=== PATIENT | male | born 1955 | race Caucasian/White ===

== ENCOUNTER 2018-12-14 00:21 | Day surgery (SDC) | payer OTHER ==
[~2018-12-14 00:21] MED LIST: ACET325 PO; ACET500 PO; ALFUZOSIN 10 MG; ASCO1ER; ASPI81CH PO; ASPI81EC PO; Alavert D-12 A1 EACH PO; BACITRACIN; BACPOLTO30 TP; BISA10S PR; CAMPHETSO TP; CHLGLU.12S; CHLGLU.12S MT; CHLO5 PO; CHLORHEXIDINE; CHLORHEXIDINE GLUCON; CIPR500 PO; DEXGUASY PO; DIPH50 PO; DOC250 PO; DOCU100 PO; GLIM2; GLIM2 PO; GUAI100SY PO; IBUP400 PO; IBUP800; INSDET100 SQ; INSDET100 SUBQ; INSULANPEN IM; IRRISO IR; LAVAP17G PO; LEVFLO500 PO; LORA10 PO; LORA10ER PO; MAGCHL64ER PO; MAGNESIUM; METF500; METF500 PO; METF500C PO; METR500 PO; MOM PO; MULVITMIND PO; MULVITMINF PO; NITR100CA PO; NYST100TC TOP; NYSTRITC TOP; OMEP10ER PO; OMEP20ER PO; OXYB5 PO; OXYB5ER PO; PHENA200 PO; PIOG15; PIOG15 PO; POLY17UD PO; POLYMYXIN B; PROC25S PR; RXERYTOPTH OP; SLOW MAG; SLOW-MAG; SULTRIDS PO; TAMS.4ER PO; TRAM50 PO; ZINCODVICR TOP; [UNRECOGNIZED DRUG - OTHER]; [UNRECOGNIZED DRUG - OTHER]; [UNRECOGNIZED DRUG - OTHER]; [UNRECOGNIZED DRUG - OTHER]; [UNRECOGNIZED DRUG - OTHER] PO
== END 2018-12-14 23:16 | disposition home or self-care (01) ==
LOC: WOUND 00:21
DX: L89.312 Pressure ulcer of right buttock, stage 2 (principal); E11.40 Type 2 diabetes mellitus with diabetic neuropathy, unspecified; I10 Essential (primary) hypertension; I25.10 Atherosclerotic heart disease of native coronary artery without angina pectoris; Z79.4 Long term (current) use of insulin
CPT/HCPCS: G0463

== ENCOUNTER 2018-12-21 00:50 | Day surgery (SDC) | payer OTHER | END 2018-12-21 23:03 | disposition home or self-care (01) | LOC: WOUND 00:50 | DX: L89.322 Pressure ulcer of left buttock, stage 2 (principal); E11.40 Type 2 diabetes mellitus with diabetic neuropathy, unspecified; I10 Essential (primary) hypertension; I25.10 Atherosclerotic heart disease of native coronary artery without angina pectoris; Z79.899 Other long term (current) drug therapy; Z79.84 Long term (current) use of oral hypoglycemic drugs | CPT/HCPCS: G0463 ==

== ENCOUNTER 2019-01-04 13:30 | Day surgery (SDC) | payer OTHER | END 2019-01-04 22:38 | disposition home or self-care (01) | LOC: WOUND 13:30 | DX: L89.322 Pressure ulcer of left buttock, stage 2 (principal); E11.40 Type 2 diabetes mellitus with diabetic neuropathy, unspecified; I10 Essential (primary) hypertension; E11.51 Type 2 diabetes mellitus with diabetic peripheral angiopathy without gangrene; G80.9 Cerebral palsy, unspecified; Z99.3 Dependence on wheelchair; Z74.09 Other reduced mobility | CPT/HCPCS: G0463 ==

== ENCOUNTER 2019-01-18 13:30 | Day surgery (SDC) | payer OTHER | END 2019-01-18 22:56 | disposition home or self-care (01) | LOC: WOUND 13:30 | DX: L89.322 Pressure ulcer of left buttock, stage 2 (principal); E11.40 Type 2 diabetes mellitus with diabetic neuropathy, unspecified; I10 Essential (primary) hypertension; E11.51 Type 2 diabetes mellitus with diabetic peripheral angiopathy without gangrene; G80.9 Cerebral palsy, unspecified; Z99.3 Dependence on wheelchair; Z74.09 Other reduced mobility | CPT/HCPCS: G0463 ==

== ENCOUNTER 2019-02-01 00:33 | Day surgery (SDC) | payer OTHER | END 2019-02-01 22:48 | disposition home or self-care (01) | LOC: WOUND 00:33 | DX: L89.322 Pressure ulcer of left buttock, stage 2 (principal); L89.312 Pressure ulcer of right buttock, stage 2; E11.40 Type 2 diabetes mellitus with diabetic neuropathy, unspecified; E11.51 Type 2 diabetes mellitus with diabetic peripheral angiopathy without gangrene; I25.10 Atherosclerotic heart disease of native coronary artery without angina pectoris; I10 Essential (primary) hypertension; Z74.09 Other reduced mobility; Z79.899 Other long term (current) drug therapy; Z79.4 Long term (current) use of insulin | CPT/HCPCS: G0463 ==

== ENCOUNTER 2019-02-19 00:21 | Day surgery (SDC) | payer OTHER | END 2019-02-19 22:55 | disposition home or self-care (01) | LOC: WOUND 00:21 | DX: L89.322 Pressure ulcer of left buttock, stage 2 (principal); E11.40 Type 2 diabetes mellitus with diabetic neuropathy, unspecified; E11.51 Type 2 diabetes mellitus with diabetic peripheral angiopathy without gangrene; I73.9 Peripheral vascular disease, unspecified; I10 Essential (primary) hypertension; Z74.09 Other reduced mobility ==

== ENCOUNTER → 2019-02-21 | Outpatient (CLI) | payer OTHER | END | disposition home or self-care (01) | LOC: LAB SHORT 16:50 → LAB 16:50 → LAB FUT 12-08 16:45 | DX: E11.21 Type 2 diabetes mellitus with diabetic nephropathy (principal) | CPT/HCPCS: 82043 ==

== ENCOUNTER 2019-04-12 09:25 | Emergency (ER) | payer OTHER ==
[~2019-04-12] VITALS: Ht 167.6 cm; Wt 49.9 kg
[2019-04-12 10:53] LABS: BASOPHILS ABSOLUTE AUTO 0.02 K/mm3 (0.00-0.23); BASOPHILS PERCENT AUTO 0 % (0-2); EOSINOPHILS ABSOLUTE AUTO 0.24 K/mm3 (0.00-0.68); EOSINOPHILS PERCENT AUTO 3 % (0-6); Hemoglobin 12.9 g/dL (13.5-17.5); IMMATURE GRAN ABSOLUTE AUTO 0.03 K/mm3 (0.00-0.10); IMMATURE GRAN PERCENT AUTO 0 % (0-1); LYMPHOCYTES ABSOLUTE AUTO 1.46 K/mm3 (0.84-5.20); LYMPHOCYTES PERCENT AUTO 17 % (21-46); MONOCYTES ABSOLUTE AUTO 0.42 K/mm3 (0.16-1.47); MONOCYTES PERCENT AUTO 5 % (4-13); Mean Corpuscular HGB 30.1 pg (26.0-34.0); Mean Corpuscular HGB Conc 33.1 g/dL (31.5-36.5); Mean Corpuscular Volume 91 fL (80-100); Mean Platelet Volume 10.5 fL (9.1-12.4); NEUTROPHILS PERCENT AUTO 75 % (41-73); Platelet Count 215 K/mm3 (150-400); RDW Coefficient Variation 13.9 % (11.7-14.2); RDW Standard Deviation 46.6 fL (35.1-46.3); Red Blood Cell Count 4.29 M/mm3 (4.30-5.90); White Blood Cell Count 8.57 K/mm3 (4.00-11.30)
[2019-04-12 11:14] LABS: Alanine Aminotransfer (ALT/SGP 9 U/L (12-78); Albumin/Globulin Ratio 0.8 (0.8-1.8); Alk Phos 130 U/L (50-136); Anion Gap 6 mmol/L (6-16); Aspartate Aminotrans (AST/SGOT 7 U/L (12-37); Bilirubin, Total 0.3 mg/dL (0.1-1.0); Blood Urea Nitrogen 16 mg/dL (8-24); Bun/Creatinine Ratio 23.1 (12.0-20.0); CO2, Blood 29 mmol/L (21-32); Calcium, Blood 8.9 mg/dL (8.5-10.1); Chloride, Blood 103 mmol/L (98-108); Creatinine, Blood 0.69 mg/dL (0.60-1.20); Globulin, Blood 3.8 g/dL (2.2-4.0); Glomerular Filtration Rate >60 (60-); Glucose, Blood 200 mg/dL (70-99); Potassium, Blood 4.5 mmol/L (3.5-5.5); Sodium, Blood 138 mmol/L (136-145); Total Protein, Blood 6.8 g/dL (6.4-8.2); Troponin I <0.015 ng/mL (0.000-0.040)
[2019-04-12 11:19] LABS: Source, Urine Catheter
[2019-04-12 11:23] LABS: Bilirubin, Urine Neg (Neg); Blood, Urine 1+ (Neg); Glucose Qualitative, Urine 2+ (Neg); Ketones, Urine 1+ (Neg); Leukocyte Esterase, Urine 3+ (Neg); Nitrite, Urine Pos (Neg); Protein, Urine 2+ (Neg); Urobilinogen, Urine 1+ (Normal)
[2019-04-12] MEDS ORDERED: LISI5 PO (11:30)
[2019-04-12] MEDS ORDERED: GABA300 PO (11:33)
[2019-04-12] MEDS ORDERED: FLUTICASONE-SA1 EAC1 INH (11:35)
[2019-04-12 11:36] LABS: Appearance, Urine Hazy (Clear); Color, Urine Yellow (P-Yellow)
[2019-04-12 11:37] LABS: Red Blood Cells, Urine 0-2 /hpf (0-2); White Blood Cells, Urine TNTC /hpf (0-5)
[2019-04-12 11:38] LABS: Bacteria Mod /hpf; Squamous Epithelial Cells Rare /hpf (Few)
== END 2019-04-12 13:15 | disposition home or self-care (01) ==
LOC: ER 09:25
PROVIDERS: Emergency Medicine
DX: E86.0 Dehydration (principal); G35 Multiple sclerosis; F44.4 Conversion disorder with motor symptom or deficit; E11.9 Type 2 diabetes mellitus without complications; F32.9 Major depressive disorder, single episode, unspecified; Z88.0 Allergy status to penicillin; Z88.1 Allergy status to other antibiotic agents; Z88.8 Allergy status to other drugs, medicaments and biological substances; Z79.899 Other long term (current) drug therapy; Z79.4 Long term (current) use of insulin; Z79.82 Long term (current) use of aspirin
CPT/HCPCS: 71046; 80053; 81001; 83690; 84443; 84484; 85025; 87086; 93005; 93010; 99285-25; J7030

== ENCOUNTER → 2019-05-16 | Outpatient (CLI) | payer OTHER ==
[~2019-05-16] MED LIST changes: +FLUTICASONE-SA1 EAC1 INH; +GABA300 PO; +LISI5 PO
== END | disposition home or self-care (01) ==
LOC: LAB 10:30 → LAB SHORT 10:30
DX: L08.9 Local infection of the skin and subcutaneous tissue, unspecified (principal)
CPT/HCPCS: 87070; 87147; 87205

== ENCOUNTER 2019-07-09 07:45 | Day surgery (SDC) | payer OTHER | END 2019-07-09 22:41 | disposition home or self-care (01) | LOC: WOUND | DX: L89.150 Pressure ulcer of sacral region, unstageable (principal); E11.40 Type 2 diabetes mellitus with diabetic neuropathy, unspecified; I10 Essential (primary) hypertension; Z74.09 Other reduced mobility; Z88.0 Allergy status to penicillin; Z88.1 Allergy status to other antibiotic agents; Z88.8 Allergy status to other drugs, medicaments and biological substances; Z99.3 Dependence on wheelchair | CPT/HCPCS: G0463 ==

== ENCOUNTER 2019-07-16 08:20 | Day surgery (SDC) | payer OTHER ==
[~2019-07-16 08:20] MED LIST changes: +Aspir 8181 MG PO; -INSULANPEN IM; +INSULANPEN SC; -LISI5 PO; +Lisinopril2.5 MG PO; +MIRALAX17 GM PO; +Nystatin15 GM TOP; +THERA1 EACH PO
== END 2019-07-16 22:35 | disposition home or self-care (01) ==
LOC: WOUND 08:20
DX: L89.159 Pressure ulcer of sacral region, unspecified stage (principal); E11.40 Type 2 diabetes mellitus with diabetic neuropathy, unspecified; E11.51 Type 2 diabetes mellitus with diabetic peripheral angiopathy without gangrene; I10 Essential (primary) hypertension; I70.90 Unspecified atherosclerosis; G80.9 Cerebral palsy, unspecified; Z74.09 Other reduced mobility; Z79.82 Long term (current) use of aspirin; Z79.4 Long term (current) use of insulin
CPT/HCPCS: G0463

== ENCOUNTER 2019-07-17 23:46 | Emergency (ER) | payer OTHER ==
[~2019-07-17] VITALS: Ht 165.1 cm; Wt 49.9 kg
[2019-07-18] MEDS ORDERED: Cleocin HCl300 MG PO (00:10)
[2019-07-18] MEDS ORDERED: [UNRECOGNIZED DRUG - OTHER] TOP (00:10)
[2019-07-18] MEDS ORDERED: ACET500 PO (15:45)
[2019-07-18] MEDS ORDERED: BACL10 PO (15:46)
[2019-07-18] MEDS ORDERED: BISA5EC PO (15:47)
[2019-07-18] MEDS ORDERED: CAMPHO PHENIQUE TOP (15:48)
[2019-07-18] MEDS ORDERED: Flonase 0.05% N16 GM (15:49)
[2019-07-18] MEDS ORDERED: GABA300 PO (15:49)
[2019-07-18] MEDS ORDERED: GENTAMICIN TOP (15:52)
[2019-07-18] MEDS ORDERED: Norco 10-325 T1 EACH PO (15:52)
[2019-07-18] MEDS ORDERED: MAGCHL64ER PO (16:35)
[2019-07-18] MEDS ORDERED: PERIDEX15 ML PO (16:35)
[2019-07-18] MEDS ORDERED: PROC25S PR (16:37)
[2019-07-18] MEDS ORDERED: SENN187 PO (16:39)
[2019-07-18] MEDS ORDERED: SILVER SULFADIA50 G1 TOP (17:02)
[2019-07-18] MEDS ORDERED: SANTYL30 GM TOP (17:03)
[2019-07-18] MEDS ORDERED: POLYSPORIN TOP (17:04)
[2019-07-18] MEDS ORDERED: Mupirocin22 GM TOP (17:05)
[2019-07-18] MEDS ORDERED: MEGESTROL400 MG/10 PO (17:06)
[2019-07-18] MEDS ORDERED: Loratadine10 MG PO (17:07)
[2019-07-18] MEDS ORDERED: Glucagon Emergen1 MG IM (17:10)
== END 2019-07-18 00:27 | disposition home or self-care (01) ==
LOC: ER 23:46
DX: L89.153 Pressure ulcer of sacral region, stage 3 (principal); Z88.0 Allergy status to penicillin; Z88.8 Allergy status to other drugs, medicaments and biological substances; Z79.899 Other long term (current) drug therapy; Z79.82 Long term (current) use of aspirin; Z79.4 Long term (current) use of insulin; E11.9 Type 2 diabetes mellitus without complications; F32.9 Major depressive disorder, single episode, unspecified
CPT/HCPCS: 99283

== ENCOUNTER 2019-07-18 15:00 | Inpatient (IN) | payer OTHER ==
[~2019-07-18] VITALS: Ht 165.1 cm; Wt 47.9 kg
[~2019-07-18 15:00] MED LIST changes: -Aspir 8181 MG PO; +Aspir 8181 MG PT; +Cleocin HCl300 MG PO; -THERA1 EACH PO; +THERA1 EACH PT; +[UNRECOGNIZED DRUG - OTHER] TOP
[2019-07-18 15:21] LABS: BASOPHILS ABSOLUTE AUTO 0.03 K/mm3 (0.00-0.23); BASOPHILS PERCENT AUTO 0 % (0-2); EOSINOPHILS PERCENT AUTO 0 % (0-6); Hematocrit 29.9 % (37.0-53.0); Hemoglobin 10.1 g/dL (13.5-17.5); IMMATURE GRAN ABSOLUTE AUTO 0.21 K/mm3 (0.00-0.10); IMMATURE GRAN PERCENT AUTO 1 % (0-1); LYMPHOCYTES ABSOLUTE AUTO 0.43 K/mm3 (0.84-5.20); LYMPHOCYTES PERCENT AUTO 3 % (21-46); MONOCYTES ABSOLUTE AUTO 0.62 K/mm3 (0.16-1.47); MONOCYTES PERCENT AUTO 4 % (4-13); Mean Corpuscular HGB 29.8 pg (26.0-34.0); Mean Corpuscular HGB Conc 33.8 g/dL (31.5-36.5); Mean Corpuscular Volume 88 fL (80-100); Mean Platelet Volume 9.6 fL (9.1-12.4); NEUTROPHILS ABSOLUTE AUTO 14.98 K/mm3 (1.96-9.15); NEUTROPHILS PERCENT AUTO 92 % (41-73); Platelet Count 290 K/mm3 (150-400); RDW Coefficient Variation 13.4 % (11.7-14.2); RDW Standard Deviation 43.2 fL (35.1-46.3); Red Blood Cell Count 3.39 M/mm3 (4.30-5.90); White Blood Cell Count 16.27 K/mm3 (4.00-11.30)
[2019-07-18 15:36] LABS: Source, Urine Catheter
[2019-07-18 15:40] LABS: Alanine Aminotransfer (ALT/SGP 8 U/L (12-78); Albumin/Globulin Ratio 0.6 (0.8-1.8); Alk Phos 86 U/L (50-136); Anion Gap 9 mmol/L (6-16); Aspartate Aminotrans (AST/SGOT 11 U/L (12-37); Bilirubin, Total 0.3 mg/dL (0.1-1.0); Blood Urea Nitrogen 26 mg/dL (8-24); Bun/Creatinine Ratio 34.9 (12.0-20.0); CO2, Blood 25 mmol/L (21-32); Calcium, Blood 8.5 mg/dL (8.5-10.1); Chloride, Blood 92 mmol/L (98-108); Creatinine, Blood 0.75 mg/dL (0.60-1.20); Globulin, Blood 3.5 g/dL (2.2-4.0); Glomerular Filtration Rate >60 (60-); Glucose, Blood 135 mg/dL (70-99); Potassium, Blood 4.8 mmol/L (3.5-5.5); Sodium, Blood 126 mmol/L (136-145); Total Protein, Blood 5.5 g/dL (6.4-8.2)
[2019-07-18] MEDS ORDERED: ACET500 PO (15:45)
[2019-07-18] MEDS ORDERED: BACL10 PO (15:46)
[2019-07-18] MEDS ORDERED: BISA5EC PO (15:47)
[2019-07-18] MEDS ORDERED: CAMPHO PHENIQUE TOP (15:48)
[2019-07-18] MEDS ORDERED: Flonase 0.05% N16 GM (15:49)
[2019-07-18] MEDS ORDERED: GABA300 PT (15:49)
[2019-07-18] MEDS ORDERED: Norco 10-325 T1 EACH PO (15:52)
[2019-07-18] MEDS ORDERED: Gentak3.5 GM TOP (15:52)
[2019-07-18 16:30] LABS: Blood, Urine 4+ (Neg); Glucose Qualitative, Urine Neg (Neg); Ketones, Urine 1+ (Neg); Leukocyte Esterase, Urine 3+ (Neg); Nitrite, Urine Neg (Neg); Protein, Urine 3+ (Neg); Urobilinogen, Urine 3+ (Normal)
[2019-07-18] MEDS ORDERED: PERIDEX15 ML MT (16:35)
[2019-07-18] MEDS ORDERED: MAGCHL64ER PO (16:35)
[2019-07-18] MEDS ORDERED: PROC25S PR (16:37)
[2019-07-18] MEDS ORDERED: SENN187 PO (16:39)
[2019-07-18 16:41] LABS: Appearance, Urine Cloudy (Clear); Bilirubin, Urine 1+ (Neg); Color, Urine Yellow (P-Yellow)
[2019-07-18 16:42] LABS: White Blood Cells, Urine TNTC /hpf (0-5)
[2019-07-18 16:43] LABS: Bacteria Many /hpf; Squamous Epithelial Cells Few /hpf (Few)
[2019-07-18] MEDS ORDERED: SILVER SULFADIA50 G1 TOP (17:02)
[2019-07-18] MEDS ORDERED: SANTYL30 GM TOP (17:03)
[2019-07-18] MEDS ORDERED: POLYSPORIN TOP (17:04)
[2019-07-18] MEDS ORDERED: Mupirocin22 GM TOP (17:05)
[2019-07-18] MEDS ORDERED: MEGESTROL400 MG/10 PO (17:06)
[2019-07-18] MEDS ORDERED: Loratadine10 MG PO (17:07)
[2019-07-18] MEDS ORDERED: Glucagon Emergen1 MG IM (17:10)
--- NOTE | 2019-07-18 18:10 | NUR ---
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 BLAKE AT BEDSIDE SPEAKING WITH CAREGIVER, ASKED TO LOOK AT POSSIBLE CENTRAL LINE PLACEMENT, NOT NECESSARY AT THIS TIME PER DR. BLAKE, REPEAT LACTIC ACID WAS DRAWN BY LAB, PATIENT AND CAREGIVER ORIENTED TO ROOM AND NEW ENVIRONMENT, CALL LIGHT GIVEN AND EXPLAINED, CAREGIVER VERBALIZED UNDERSTANDING, PATIENT WAS PLACED ON MONITOR, CALL LIGHT IN REACH, WILL CONTINUE TO MONITOR AND GIVE REPORT TO ONCOMING ARCHITECTURAL WOOD MODEL MAKER
--- NOTE | 2019-07-18 19:07 | NUR ---
BEDSIDE REPORT GIVEN TO SUZETTE OTTO AND LORENA, REGULATORY COMPLIANCE OFFICER.
--- NOTE | 2019-07-18 20:22 | NUR ---
ASSUMPTION OF CARE RECEIVED REPORT FROM DAYSHIFT NURSE. PT IS FULL CODE. PATIENT WAS ADMITTED FOR SEPTIC SHOCK. PT HAS CEREBRAL PALSY AND COMMUNICATES BY MOANING AND NODDING. LEVOPHED INCREASED FROM 3MCG TO 4MCG/MIN. IVS ARE 18GV LAC AND 18G RAC. BOTH ARE PATENT AND DRESSING C/D/I. RAN BOLUS OF NS 1000ML. HAS INTRA-ABDOMINAL URINARY CATH THAT IS PATENT, VOIDING YELLOW URINE WITH SEDIMENT. CATH INSERTION POINT WAS CLEANED WITH SOAP AND WATER. HAS PRESSURE ULCER ON COCCYX. ULCER LOCATION WAS CLEANED. PICTURES OF ULCER TAKEN AND FILED IN CLIENTS CHART. BP HAS FLUCTUATED AROUND 60-80/40-60. HEART RATE OVER 100. RESPIRATIONS BETWEEEN 8 AND 15. O2 SAT ABOVE 94%. VITALS ARE CURRENTLY STABLE. LUNG SOUNDS ARE COARSE BILATERAL WITH DIMINISHED SOUNDS IN LOWER LUBES. SP THOMAS SN
--- NOTE | 2019-07-19 01:39 | NUR ---
ASSUMPTION OF CARE RECEIVED REPORT FROM DAYSDEFT NURSE. PT IS FULL CODE. PT ADMITTED WITH SEPTIC SHOCK. PT HAS CEREBRAL PALSY AND COMMUNICATES BY MOANING AND NODDING. LEVOPHED INCREASED FROM 3MCG TO 4MCG. IVS ARE 18G LWR AND 18G RAC. BOTH ARE PATENT AND DRESSINGS C/D/I. RAN BOLUS OF NS 1000ML. HAS SUPRAPUBLC URINARY CATH IN PLACE AND IT IS PATENT. CATH INSERTION POINT CLEANED WITH SOAP AND WATER. HAS A PRESSURE ULCER ON COCCYX AND THE LOCATION WAS CLEANED AND A DRESSING PLACED OVER IT. PICTURES OF ULCER TAKEN AND FILED IN THE CLIENT'S CHART. BP HAS FLUCTUATED AROUND 60-80/40-60 - WILL TITRATE LEVOPHED NEEDED. HEART RATE OVER 100. RR BETWEEN 8 AND 15. SAT ABOVE 94%. VITALS ARE CURRENTLY STABLE. LUNG SOUNDS ARE COARSE BILATERALLY WTIH DIMINISHED SOUNDS IN THE LOWER LOBES. WILL CONTINUE TO MONITOR PATIENT. SP PARKS
[2019-07-19 03:50] LABS: Hematocrit 28.8 % (37.0-53.0); Hemoglobin 9.6 g/dL (13.5-17.5); Mean Corpuscular HGB Conc 33.3 g/dL (31.5-36.5); Mean Corpuscular Volume 87 fL (80-100); Mean Platelet Volume 9.1 fL (9.1-12.4); Platelet Count 355 K/mm3 (150-400); RDW Coefficient Variation 13.6 % (11.7-14.2); RDW Standard Deviation 42.8 fL (35.1-46.3); Red Blood Cell Count 3.31 M/mm3 (4.30-5.90)
[2019-07-19 04:08] LABS: Alanine Aminotransfer (ALT/SGP 11 U/L (12-78); Albumin, Blood 1.9 g/dL (3.4-5.0); Albumin/Globulin Ratio 0.5 (0.8-1.8); Alk Phos 92 U/L (50-136); Anion Gap 8 mmol/L (6-16); Aspartate Aminotrans (AST/SGOT 18 U/L (12-37); Bilirubin, Total 0.5 mg/dL (0.1-1.0); Blood Urea Nitrogen 18 mg/dL (8-24); CO2, Blood 23 mmol/L (21-32); Calcium, Blood 7.9 mg/dL (8.5-10.1); Chloride, Blood 100 mmol/L (98-108); Creatinine, Blood 0.49 mg/dL (0.60-1.20); Globulin, Blood 3.5 g/dL (2.2-4.0); Glomerular Filtration Rate >60 (60-); Glucose, Blood 164 mg/dL (70-99); Potassium, Blood 3.9 mmol/L (3.5-5.5); Sodium, Blood 131 mmol/L (136-145); Total Protein, Blood 5.4 g/dL (6.4-8.2)
[2019-07-19 04:32] LABS: BAND PERCENT MAN 17 % (0-8); BASOPHILS PERCENT MAN 0 % (0-2); EOSINOPHILS PERCENT MAN 0 % (0-6); LYMPHOCYTES ABSOLUTE MAN 0.71 K/mm3 (0.84-5.20); LYMPHOCYTES PERCENT MAN 4 % (21-46); MONOCYTES ABSOLUTE MAN 0.17 K/mm3 (0.16-1.47); MONOCYTES PERCENT MAN 1 % (4-13); NEUTROPHILS ABSOLUTE MAN 16.91 K/mm3 (1.96-9.15); SEG NEUTROPHILS PERCENT MAN 78 % (41-73); TOTAL CELLS COUNTED 100
--- NOTE | 2019-07-19 05:33 | NUR ---
PATIENT HAS CEREBRAL PALSY AND HAS LIMITED VERBALIZATION. VERY LIMITED MOBILITY AND NEEDS ASSISTANCE WITH EATING, DRINKING, AND MOVING. HAS AN 18G IV L FOREARM AND 18G IV RAC. BOTH ARE PATENT AND DRESSINGS ARE C/D/I. HAS A SUPRAPUBIC CATH THAT IS DRAINING WELL. URINE HAS A CLOUDY APPEARANCE. CATH INSERTION SITE WAS CLEANED AND GAUZE APPLIED. HAS A LARGE ULCER ON HIS COCCYX. DRESSING APPLIED AND IS C/D/I. VITALS ARE CURRENTLY STABLE. BLOOD PRESSURE FLUCTUATING BETWEEN 70-100/50-70. LEVOPHED TITRATED BETWEEN 3MCG TO 6MCG DURING SHIFT. DESATS AT TIMES TO AROUND 87-90, MOSTLY STAYING ABOVE 94%. RESPIRATIONS RANGE BETWEEN 10-25. LUNG SOUNDS HAVE RANGED FROM COARSE TO CLEAR THROUGHOUT SHIFT WITH SOME UPPER LUNG CONGESTION. AFEBRILE. REPORTED PAIN EARLY IN SHIFT AND WAS GIVEN 2MG MORPHINE - NO MORE REPORTED PAIN OR DISCOMFORT. WILL PASS REPORT TO DAYSNYFT NURSE. SP PARKS
--- NOTE | 2019-07-19 07:30 | NUR ---
ASSUMED CARE OF PT. PT IS ORIENTED. PT SEEMED TO BE COMPREHENDING BUT DIFFICULT TO UNDERSTAND DUE TO GARBLED SPEECH. PT HAS A HISTORY OF CP.
--- NOTE | 2019-07-19 08:30 | NUR ---
PT'S CAREGIVER AT BEDSIDE UPATED HER OF PT'STATUS.
--- NOTE | 2019-07-19 09:15 | NUR ---
DR. MARIE CAME BY TO SEE PT. UPDATED HIM OF PT'S STATUS. HE WAS NOTIFIED PT IS STILL ON LEVOPHED. PT'S BP DECREASES TO LOW IN THE 70s SBP WHEN LEVOPHED IS TURNED OFF. CURRENT LEVOPHED DRIP @ 4MCG/KG/MIN. ORDERS TO PLACE A PICC LINE AND GIVE ANOTHER 500ML BOLUS OF NS.
--- NOTE | 2019-07-19 11:34 | NUR ---
MARLIN, PICC RN PLACING A PICC LINE AT THIS TIME. CONSENT WAS OBTAIN FROM PT'S [facility], [place].
--- NOTE | 2019-07-19 13:00 | NUR ---
PICC LINE ATTEMPT. UNABLE TO PLACE PICC IN THE RT UA. ABLE TO CANNULATE VEIN ON FIRST 2 ATTEMPTS TO THE BASILIC AND BRACHIAL VEINS. ABLE TO THREAD WIRE WHEN ACCESSING CEPHALIC VEIN, HOWEVER, UNABLE TO THREAD PICC LINE PAST APPROXIMATELY MID-CLAVICULAR AREA. CXR DONE TO ASSESS TIP LOCATION. D/C'D PICC LINE PER RADIOLOGISTS RECOMMENDATIONS.
[2019-07-19 14:12] LABS: Source, Urine Catheter
--- NOTE | 2019-07-19 14:17 | NUR ---
1340-REPLACED SUPRAPUBIC CATH. DR. POTTER AT BEDSIDE. HE LOOKED AT PT'S PRESSURE ULCER. PT WILL BE GOING TO THE OR FOR DEBRIDEMENT AND WOUND VAC PLACEMENT. MOLD WASHER CAME BY AND DID ULTRASOUND OF KIDNEYS AFTER DR. POTTER SAW THE PATIENT. 1417-PT'S O2 SATURATION IS DROPPING TO LOW 80%. STARTED O2 2LPM NC. PT KEEP ASKING FOR "ROOT BEER" REMINDED PT ON NPO. INFORMED HIM, HE WILL GET ONE WHEN SURGERY IS DONE.
[2019-07-19 14:20] LABS: Bilirubin, Urine Neg (Neg); Blood, Urine 2+ (Neg); Glucose Qualitative, Urine Neg (Neg); Ketones, Urine 1+ (Neg); Leukocyte Esterase, Urine Neg (Neg); Nitrite, Urine Neg (Neg); Protein, Urine 2+ (Neg); Urobilinogen, Urine NORM (Normal)
--- NOTE | 2019-07-19 14:30 | NUR ---
DR. MARIE WAS NOTIFIED REGARDING THE ATTEMPTED PICC LINE PLACEMENT BUT IS UNSUCCESSFUL. PT IS STILL ON LEVOPHED DRIP. DR. MARIE ASKED IF DR. POTTER CAN PLACE A CENTRAL LINE SINCE PT WILL BE GOING TO THE OR.
[2019-07-19 14:31] LABS: Appearance, Urine Hazy (Clear); Color, Urine Yellow (P-Yellow)
[2019-07-19 14:37] LABS: Red Blood Cells, Urine Rare /hpf (0-2); White Blood Cells, Urine 0-2 /hpf (0-5)
[2019-07-19 14:40] LABS: Amorphous Light (0-Heavy); Bacteria Few /hpf; Granular Casts 0-2 /lpf (0); Squamous Epithelial Cells Not Seen /hpf (Few)
--- NOTE | 2019-07-19 15:50 | NUR ---
PT WAS TAKEN TO THE OR AT THIS TIME FOR DEBRIDEMENT, WOUND VAC PLACEMENT AND CENTRAL LINE PLACEMENT. CONSENT WAS OBTAINED BY DR. POTTER AND OR CREW.
--- NOTE | 2019-07-19 17:14 | NUR ---
07/19/19 1713 Everardo Cortez PT IS ON SCHEDULED ANTIBIOTICS AND RECIEVED PRIOR TO ARRIVAL TO OR.
--- NOTE | 2019-07-19 18:35 | NUR ---
1800-PT CAME BACK FROM THE OR. PT HAS A WOUND VAC TO HIS COCCYX AREA. AFEBRILE- 96.7 TEMP. PT IS ON 2LPM NC AT THIS TIME. PT HAS BEEN OFF LEVOPHED SINCE HE LEFT FOR OR.
--- NOTE | 2019-07-19 18:46 | NUR ---
SHIFT SUMMARY: PT HAS BEEN OFF LEVOPHED SINCE HE CAME PT FROM THE OR. PT IS HOLDING HIS BLOOD PRESSURE WELL. STILL ON NS @ 200ML/HR. PT IS STILL SLIGHTLY SLEEPY COMING FROM THE OR. PT HAS A WOUND VAC TO HIS COCCYX AREA. ON 2LPM NC. AFEBRILE.
--- NOTE | 2019-07-19 21:32 | NUR ---
ASSUMED PT CARE AT 1915 PT SITTING UP IN BED WITH CAREGIVER FROM [facility] AT BEDSIDE. PT IS ALERT AND ABLE TO ANSWER YES/NO QUESTIONS. HOWEVER, VERY HARD TO UNDERSTAND TO MAKE BASIC NEEDS KNOWN. PT HOLLERS OUT, BUT APPEARS TO BE SAYING HE WANTS TO GO "HOME", WELL HOLLERING OUT NAMES OF PEOPLE. UNABLE TO UNDERSTAND WHAT PT IS SAYING; HOWEVER, HE DENIES THE NEED FOR ANYTHING WHEN ASKED. MEDICATED FOR PAIN WITH BOTH TYLENOL AND MORPHINE PER ORDERS. LUNG SOUNDS ARE CLEAR T/O. PT ON 2L OF OXYGEN VIA NC; REMOVED FOR A SHORT WHILE, BUT BIOX STARTED TRENDING DOWN TO MID 80'S WITH NO RECOVERY; PLACED BACK ON 2L VIA NC WITH BIOX MAINTAINING MID 90'S. PT HAS BEEN SINUS TACHYCARDIC WITH HR 100'S; LEVOPHED GTT REMAINS OFF. STRONG PULSES WITH DEPENDED EDEMA NOTED TO BILATERAL HANDS, AND +2 PITTING EDEMA NOTED TO BILATERAL FEET. WOUND VAC IN PLACE AT 100 MM HG TO SACRUM REGION SECONDARY TO DECUBITUS ULCER WITH RECENT DEBRIDEMENT TODAY FROM DR. POTTER. REDNESS NOTED AROUND WOUND VAC, WELL AROUND SUPRA PUBIC CATHETER; WHICH IS DRAINING TO GRAVITY CLEAR, YELLOW URINE. PT APPEARS COMFORTABLE AT THIS TIME. WILL CONTINUE TO MONITOR T/O SHIFT FOR ANY NEGATIVE CHANGES.
--- NOTE | 2019-07-20 04:44 | NUR ---
END OF SHIFT SUMMARY PT HAS REMAINED ALERT AND ABLE TO ANSWER YES/NO QUESTIONS. CAREGIVERS HAVE BEEN IN AND OUT T/O NIGHT. PT CONTINUES TO REPEAT HE WANTS TO GO BACK HOME. LEVOPHED HAS REMAINED OFF T/O SHIFT. NO SIGNIFICANT CHANGES SINCE LAST ENTRY. PT HAS REQUIRED 2L VIA NC D/T DIPPING TO MID 80'S OCCASIONALLY; HOWEVER, WHEN PT DID FINALLY FALL ASLEEP HE EVEN TENDED TO DECLINE TO THE MID 80'S WITH OXYGEN AT 2L AND PT BREATHING THROUGH HIS NOSE; CAREGIVER STATES PT DOESN'T WEAR ANY SORT OF CPAP OR BIPAP AT HOME AND IS ON ROOM AIR AT HOME WELL. WILL CONTINUE TO MONITOR UNTIL REPORT IS HANDED OFF TO ONCOMING RN.
[2019-07-20 06:23] LABS: BASOPHILS ABSOLUTE AUTO 0.03 K/mm3 (0.00-0.23); BASOPHILS PERCENT AUTO 0 % (0-2); EOSINOPHILS ABSOLUTE AUTO 0.01 K/mm3 (0.00-0.68); EOSINOPHILS PERCENT AUTO 0 % (0-6); Hematocrit 26.5 % (37.0-53.0); Hemoglobin 8.8 g/dL (13.5-17.5); IMMATURE GRAN ABSOLUTE AUTO 0.05 K/mm3 (0.00-0.10); IMMATURE GRAN PERCENT AUTO 0 % (0-1); LYMPHOCYTES ABSOLUTE AUTO 0.61 K/mm3 (0.84-5.20); LYMPHOCYTES PERCENT AUTO 5 % (21-46); MONOCYTES ABSOLUTE AUTO 0.36 K/mm3 (0.16-1.47); MONOCYTES PERCENT AUTO 3 % (4-13); Mean Corpuscular HGB 28.9 pg (26.0-34.0); Mean Corpuscular HGB Conc 33.2 g/dL (31.5-36.5); Mean Corpuscular Volume 87 fL (80-100); NEUTROPHILS ABSOLUTE AUTO 10.47 K/mm3 (1.96-9.15); NEUTROPHILS PERCENT AUTO 91 % (41-73); Platelet Count 311 K/mm3 (150-400); RDW Coefficient Variation 13.8 % (11.7-14.2); RDW Standard Deviation 44.2 fL (35.1-46.3); Red Blood Cell Count 3.05 M/mm3 (4.30-5.90); White Blood Cell Count 11.53 K/mm3 (4.00-11.30)
[2019-07-20 06:43] LABS: Alanine Aminotransfer (ALT/SGP 9 U/L (12-78); Albumin, Blood 1.6 g/dL (3.4-5.0); Albumin/Globulin Ratio 0.5 (0.8-1.8); Alk Phos 72 U/L (50-136); Anion Gap 9 mmol/L (6-16); Aspartate Aminotrans (AST/SGOT 10 U/L (12-37); Bilirubin, Total 0.2 mg/dL (0.1-1.0); Blood Urea Nitrogen 9 mg/dL (8-24); Bun/Creatinine Ratio 22.1 (12.0-20.0); CO2, Blood 22 mmol/L (21-32); Calcium, Blood 7.5 mg/dL (8.5-10.1); Chloride, Blood 105 mmol/L (98-108); Creatinine, Blood 0.41 mg/dL (0.60-1.20); Globulin, Blood 3.1 g/dL (2.2-4.0); Glomerular Filtration Rate >60 (60-); Glucose, Blood 114 mg/dL (70-99); Potassium, Blood 3.3 mmol/L (3.5-5.5); Sodium, Blood 136 mmol/L (136-145); Total Protein, Blood 4.7 g/dL (6.4-8.2)
[2019-07-20 06:44] LABS: Vancomycin, Trough 11.3 ug/mL (5.0-10.0)
--- NOTE | 2019-07-20 07:42 | NUR ---
CARE ASSUMED CARE AND REPORT ASSUMED FROM AYLA BRADFORD. PT AWAKE AND LISTENING TO THE TV. WHEN ASKED IF IN PAIN, PT DENIES. TURNED PT; HOB ELEVATED. PT MUMBLING IN INCOMPREHENSIBLE WORDS. COCCYX WOUND VAC REMAINS IN PLACE, SECURED, WITH NO SURROUDING LEAKING. SUPRAPUBIC CATHETER REMAINS PATENT AND DRAINING. MD MARIE CALLED ABOUT K 3.3; T.O. TO ADMINISTER 20 MEQ. LUNG SOUNDS CLEAR. [place], HR 110-120. BP WNL. TEMP 99.8. CAREGIVER STOPPED BY BUT IS NOT AT BEDSIDE AT THIS TIME. NS MIV INFUSING AT 200 ML/HR PER ORDER. WILL CONTINUE TO MONITOR.
--- NOTE | 2019-07-20 11:56 | NUR ---
REASSESSMENT REMAINS IN [place], HR 130. BP WNL. TEMP 99.8. TYLENOL GIVEN FOR TEMP AND MORPHINE 2 MG IVP GIVEN FOR PAIN. PT CONTINUES TO MOAN AND SPEECH IS GARBLED. TOLEATING A MILKSHAKE. MIV NS CONTINUES TO INFUSE AT 200 ML/HR PER ORDER. WILL CONTINUE TO MONITOR AND TRANSFER TO SURGICAL FLOOR IF HR BELOWE 130.
--- NOTE | 2019-07-20 14:27 | NUR ---
HANDOFF REPORT AND CARE HANDED OFF TO MARIN BRADFORD. PT TURNED AND HOB ELEVATED. METOPROLOL 5 MG IVP GIVEN TO PT.
--- NOTE | 2019-07-20 18:29 | NUR ---
PT UPDATE PT O2 REQ INCREASED FROM 4L NC TO 10L HFNC. CLEAR AND DIM BILAT RT AT BEDSIDE MD ADVISED. IVF STOPPED PT WITH NO S/S RESP DISTRESS STOPPED. PCXR ORDERED. TOLERATING 10L HFNC AND WILL WEAN TOLERATED.
[2019-07-21 05:08] LABS: BASOPHILS ABSOLUTE AUTO 0.03 K/mm3 (0.00-0.23); BASOPHILS PERCENT AUTO 0 % (0-2); EOSINOPHILS ABSOLUTE AUTO 0.15 K/mm3 (0.00-0.68); EOSINOPHILS PERCENT AUTO 1 % (0-6); Hematocrit 28.3 % (37.0-53.0); Hemoglobin 9.4 g/dL (13.5-17.5); IMMATURE GRAN ABSOLUTE AUTO 0.08 K/mm3 (0.00-0.10); IMMATURE GRAN PERCENT AUTO 1 % (0-1); LYMPHOCYTES ABSOLUTE AUTO 0.98 K/mm3 (0.84-5.20); LYMPHOCYTES PERCENT AUTO 9 % (21-46); MONOCYTES PERCENT AUTO 5 % (4-13); Mean Corpuscular HGB 29.6 pg (26.0-34.0); Mean Corpuscular HGB Conc 33.2 g/dL (31.5-36.5); Mean Corpuscular Volume 89 fL (80-100); Mean Platelet Volume 8.9 fL (9.1-12.4); NEUTROPHILS PERCENT AUTO 84 % (41-73); Platelet Count 333 K/mm3 (150-400); RDW Coefficient Variation 13.8 % (11.7-14.2); RDW Standard Deviation 45.1 fL (35.1-46.3); Red Blood Cell Count 3.18 M/mm3 (4.30-5.90); White Blood Cell Count 11.14 K/mm3 (4.00-11.30)
[2019-07-21 05:26] LABS: Anion Gap 8 mmol/L (6-16); Blood Urea Nitrogen 12 mg/dL (8-24); Bun/Creatinine Ratio 30.2 (12.0-20.0); CO2, Blood 23 mmol/L (21-32); Calcium, Blood 7.4 mg/dL (8.5-10.1); Chloride, Blood 106 mmol/L (98-108); Glomerular Filtration Rate >60 (60-); Glucose, Blood 91 mg/dL (70-99); Potassium, Blood 3.8 mmol/L (3.5-5.5); Sodium, Blood 137 mmol/L (136-145); Vancomycin, Trough 16.9 ug/mL (5.0-10.0)
--- NOTE | 2019-07-21 06:37 | NUR ---
SHIFT SUMMARY LYING IN HIGH FOWLERS WITH EYES CLOSED. ABLE TO SWALLOW 0600 MED WITHOUT ISSUE WITH WATER. TOLERATING IV ABX WELL. POSITION CHANGES COMPLETED Q 1-2 HRS. BED ALSO IN ROTATION MODE, TOLERATING WELL. SMALL AMOUNT OF SEROSANGINEOUS FLUID IN DRAINAGE CHAMBER, WOUND VAC INTACT AND MAINTAINING SUCTION AT 100MM/HG. SUPRAPUBIC CATH DRAINING CONCENTRATED YELLOW URINE TO GRAVITY. DENIES FURTHER NEED OR WANTS AT THIS TIME. SAFETY MEASURES IN PLACE. WILL GIVE HAND OFF TO ONCOMING SHIFT USING SBAR,
--- NOTE | 2019-07-21 09:40 | NUR ---
CARE ASSUMED CARE AND REPORT ASSUMED FROM NAYA BRADFORD. PT IN BED, IS CALM AND COOPERATIVE. AFEBRILE THIS AM. NSR, HR 90S. BP WNL. SPO2 98% ON 2L NC. LUNG SOUNDS CLEAR, BUT DIMINISHED ON LEFT SIDE. SISTER AND HER AT BEDSIDE. PT HAD LARGE BM THIS MORNING AND WAS CLEANED AND TURNED. MORPHINE 2MG IVP GIVEN FOR PAIN PER PT. SUPRAPUBIC CATH SECURED AND PATENT. WOUND VAC OVER COCCYX SECURED; WILL CHANGE DRESSING AT NEXT TURN. SWALLOW EVAL ORDERED FOR OFFICAL EVALUATION OF THROAT MUSCLES AND SWALLOWING ABILITY SINCE PT IS HIGH ASPIRATION RISK. WILL CONTINUE TO MONITOR.
--- NOTE | 2019-07-21 11:33 | NUR ---
REASSESSMENT/TRANSFER OF CARE WOULD VAC DRESSING COMPLETELY CHANGED WITH STERILE TECHNIQUE; HAD TO BE DONE DUE TO STOOL UNDER DRESSING. CENTRAL LINE REMOVED WITH PT IN [place] POSITION; DRESSING INTACT; NO CHANGES IN LUNG SOUNDS OR O2 DEMANDS. VSS. COMPLETE BEDBATH AND LINEN CHANGE DONE. REPORT CALLED TO [facility] ON MEDICAL FLOOR. PT TO BE TRANSFERRED TO ROOM 325.
--- NOTE | 2019-07-21 18:47 | NUR ---
PT. LYING QUIETLY,SISTER IN ROOM. NO CHANGES SINCE PT. CAME TO ROOM, TAKES MEDS WHOLE IN APPLESAUCE. WOUND VAC ON COCCYX AFTER I&D DONE. NEEDS TO BE SET UP AT 90 DEGREES WHEN EATING OR TAKING MEDS. CARE GIVERS FROM [facility] COMES IN TO SEE HIM OCCASSIOALLY.
--- NOTE | 2019-07-22 06:25 | NUR ---
SHIFT SUMMARY PATIENT RESTED AND SLEPT MOST OF THE NIGHT. IV PATENT AND FLUSHED. PATIENT'S SUPRAPUBIC CATHETER WAS LEAKING DURING THE NIGHT. ADJUSTED THE TUBING, CHANGED HIS GOWN AND THE DRESSING OVER THE INSERTION SITE. THIS SEEMS TO HAVE HELPED. WOUND VAC STILL IN PLACE ON PATIENTS SACRUM, SMALL AMOUNT OF SANGUENOUS FLUID DRAINING FROM WOUND. BED IN LOWEST POSITION WITH WHEELS LOCKED, CALL LIGHT WITHIN REACH. REPORT GIVEN TO ONCOMING RN.
--- NOTE | 2019-07-22 12:01 | NUR ---
Echocardiogram performed.
--- NOTE | 2019-07-22 15:35 | NUR ---
ATTEMPT TO REACH HEALTH CARE MASONRY INSTRUCTOR , MANISH HUTSON, AT [phone]. VOICE MAIL SAID "THIS IS HENNA". LEFT MESSAGE "TRYING TO RECH MANISH HUTSON IF THIS IS HIM PLEASE CALL ZINA AT [phone]." EMBROIDERER HAND NOTIFIED.
--- NOTE | 2019-07-22 17:01 | NUR ---
ALERT TO SELF. DIFFICULT TO UNDERSTAND PATIENT WORDS VERY GARBLED. TURNED Q 2 HOURS WITH PATIENT USUALLY NOT WANTING TO BE MOVED. PILLOWS UNDER BOTH ARMS TO DECRESE SWELLING. SLINGED TO SCROTUM AND PENIS TO ALLEVIATE SOME SWELLING. IV TO LEFT F.A. PATENT. WOUND VAC CHANGED AND NEW PICS TAKEN. RECEIVED ONE TIME ORDER FOR PAIN MEDS PRIOR TO WOUND VAC CHANGE. PER CAREGIVER IN ROOM PATIENT HAS VOICED NOT WANTING PEG TUBE--FEEDING TUBE WITH AWARE OF THIS. FEEDER WITH PATIENT SITTING STRAIGHT UP. NO DIFFICULTY SAWLLOWING. SUPERPUBIC CATH LEAKED X 2 WITH GOWN CHANGED. CATH FLUSHED AND BOTH BULBS CHECKED FOR LEAKS. IF CATH FLAT IT DOESN'T LEAK. WCTM
--- NOTE | 2019-07-23 04:11 | NUR ---
SHIFT SUMMARY AOXSELF. LS COARSE, DENIES SOB. NO C/O NAUSEA. PAIN IN BACK, CLEOPATRA PAIN MEDS. ULCER ON SACRUM FOR 3 MONTHS, I&D DONE ON MONDAY, WOUND VAC IN PLACE, DRESSING C/D/I. 2L 02 VIA NC, BASELINE. SUPRAPUBIC CATH IS VERY POSITIONAL, PROBLEMS WITH LEAKING. FEEDER, REFUSED TO EAT SUPPER. REFUSED PERIDEX SPONGE IN MOUTH. AC AND HS, HS BLOOD GLUCOSE WAS 109. Q2 TURNS, PT DOES NOT LIKE TO BE REPOSITIONED. MEDS IN APPLESAUCE. LANGUAGE IS VERY GARBLED AND HARD TO UNDERSTAND. PT BEHAVIOR IMPROVES WHEN CAREGIVER IS AT BEDSIDE. PLAN IS POSSIBLE PEG TUBE PLACEMENT DEPENDING ON SPEECH EVAL. VSS.
--- NOTE | 2019-07-23 17:35 | NUR ---
ALERT TO SELF AND FRIENDS AND POSSIBLY TO WHERE HE IS . NUMEROUS VISITORS TODAY WITH PATIENT VERY TALKATIVE. STILL DIFFICULT TO UNDERSTAND. TURNED Q 2. MEDICATED FOR PAIN AND VERY DIFFICULT TO TELL IF HELPS. IF NOT MOVED SEEMS TO BE PAIN FREE, BUT IF SET UP FOR MEDS OR EATTING APPEARS VERY PAINFUL. SUPER PUBIC CATH FLUSHED. IV PATENT. UNLABORED RESPIRATIONS. WCTM
--- NOTE | 2019-07-24 02:57 | NUR ---
SHIFT SUMMARY NO ASSESSMENT CHANGES. L FA IV IS SL. 2L O2 VIA NC. SUPRAPUBIC CATH DRAINING WELL, NO LEAKING. NO ISSUES WITH WOUND VAC. HS BLOOD GLUCOSE 148. TYLENOL GIVEN @ 2024. UNSURE OF PLAN AT THIS TIME.
--- NOTE | 2019-07-24 05:38 | NUR ---
VEWS SCORE OF 3 D/T RR OF 40. OTHER VS STABLE. EDUCATED PT ON TAKING DEEP BREATHS. ASSESSMENT NEGATIVE. CALLED RT.
--- NOTE | 2019-07-24 18:13 | NUR ---
SUMMARY PATIENT WITH POOR PO INTAKE IN SPITE MUCH ENCOURAGEMENT FROM STAFF, CARETAKERS AND HIS SISTER. SUPRAPUBIC CATHETER INTERMITTENTLY LEAKING URINE AT INSERTION SITE. SPLIT DRAIN SPONGE, BIBI PAD, MATERNITY PAD AND ATTENDS IN PLACE TO WICK MOISTURE. BARRIER CREAM APPLIED TO CATH SITE. PATIENT GRIMACES AND CRIES OUT WHEN REPOSITIONED. WOUND VAC CHANGED BY STACY KEENE RN
--- NOTE | 2019-07-25 02:49 | NUR ---
SHIFT SUMMARY NO ASSESSMENT CHANGES. 2L O2. L FA IV TKO BETWEEN ANTIBIOTICS. SUPRAPUBIC CATH DRAINING WELL, NO LEAKING. WOUND VAC INTACT, NO SEAL ISSUES. PT DOES NOT LIKE BEING TURNED. TYLENOL GIVEN @ 2000 AND MANAGING PAIN WELL. HS BLOOD GLUCOSE 179. PT REFUSED PEG TUBE PLACEMENT. UNSURE OF DC PLAN AT THIS TIME.
[2019-07-25 05:30] LABS: BASOPHILS ABSOLUTE AUTO 0.04 K/mm3 (0.00-0.23); BASOPHILS PERCENT AUTO 1 % (0-2); EOSINOPHILS ABSOLUTE AUTO 0.11 K/mm3 (0.00-0.68); EOSINOPHILS PERCENT AUTO 2 % (0-6); Hemoglobin 11.1 g/dL (13.5-17.5); IMMATURE GRAN ABSOLUTE AUTO 0.31 K/mm3 (0.00-0.10); IMMATURE GRAN PERCENT AUTO 5 % (0-1); LYMPHOCYTES ABSOLUTE AUTO 1.93 K/mm3 (0.84-5.20); LYMPHOCYTES PERCENT AUTO 31 % (21-46); MONOCYTES ABSOLUTE AUTO 0.66 K/mm3 (0.16-1.47); MONOCYTES PERCENT AUTO 11 % (4-13); Mean Corpuscular HGB 29.1 pg (26.0-34.0); Mean Corpuscular HGB Conc 33.6 g/dL (31.5-36.5); Mean Platelet Volume 9.4 fL (9.1-12.4); NEUTROPHILS ABSOLUTE AUTO 3.22 K/mm3 (1.96-9.15); NEUTROPHILS PERCENT AUTO 51 % (41-73); Platelet Count 341 K/mm3 (150-400); RDW Coefficient Variation 13.4 % (11.7-14.2); RDW Standard Deviation 41.7 fL (35.1-46.3); Red Blood Cell Count 3.82 M/mm3 (4.30-5.90); White Blood Cell Count 6.27 K/mm3 (4.00-11.30)
[2019-07-25 05:40] LABS: Mean Corpuscular Volume 86 fL (80-100)
[2019-07-25 05:49] LABS: Alanine Aminotransfer (ALT/SGP 11 U/L (12-78); Albumin, Blood 1.9 g/dL (3.4-5.0); Albumin/Globulin Ratio 0.5 (0.8-1.8); Alk Phos 54 U/L (50-136); Anion Gap 4 mmol/L (6-16); Aspartate Aminotrans (AST/SGOT 14 U/L (12-37); Bilirubin, Total 0.3 mg/dL (0.1-1.0); Blood Urea Nitrogen 13 mg/dL (8-24); Bun/Creatinine Ratio 35.4 (12.0-20.0); CO2, Blood 31 mmol/L (21-32); Calcium, Blood 7.8 mg/dL (8.5-10.1); Chloride, Blood 98 mmol/L (98-108); Creatinine, Blood 0.37 mg/dL (0.60-1.20); Globulin, Blood 3.5 g/dL (2.2-4.0); Glomerular Filtration Rate >60 (60-); Glucose, Blood 128 mg/dL (70-99); Potassium, Blood 4.5 mmol/L (3.5-5.5); Sodium, Blood 133 mmol/L (136-145); Total Protein, Blood 5.4 g/dL (6.4-8.2)
--- NOTE | 2019-07-25 14:40 | NUR ---
Pt. in bed and doing much better offered prayers and blessing.
--- NOTE | 2019-07-25 17:23 | NUR ---
SHIFT SUMMARY: PT IS ALERT AND RESPONDS TO HIS CAREGIVERS AND SITUATION BUT IS NOT ABLE TO VERBALIZE WORDS. HE CAN AT TIMES MAKE HIS NEEDS KNOWN. HE HAS NO S/S OF PAIN EXCEPT WITH RE-POSITIONING WHICH HE DOES NOT LIKE. HIS CAREGIVERS HAVE BEEN IN AND OUT OF THE ROOM THROUGHOUT THE DAY. PER SPEECH THERAPIST THE PT WAS AGREEABLE TO A FEEDING TUBE TODAY. CONSULT WAS CALLED IN TO DR POTTER WHO CAME TO SEE THE PT THIS AFTERNOON. THE PEG TUBE WILL BE PLACED SOMETIME TOMORROW. PT CONTINUES ON O2 AT 2 LPM VIA N.C. SUPRA PUBIC CATHETER CONTINUES TO LEAK COPIOUS AMOUNTS OF URINE AND PADS/DRESSINGS HAVE BEEN CHANGED OUT MULTIPLE TIMES TODAY. PT IS RESTING IN BED WITH CAREGIVERS AT THE BEDSIDE.
--- NOTE | 2019-07-26 04:49 | NUR ---
SHIFT SUMMARY PT HAS APPEARED TO REST WELL THROUGHOUT THE NIGHT. HIS SUPRAPUBIC CATHETER LEAKS SO WE ARE CHANGING AND REPOSITIONING HIM FREQUENTLY WELL CLEANING THE SKIN. PT HAS DIFFICULTY SITTING UP CAUSING HIM PAIN. TREATED PER EMAR AND REPOSITIONING. WILL CONTINUE TO MONITOR.
--- NOTE | 2019-07-26 17:31 | NUR ---
PATIENT IS ALERT. WHEN ASKED WHERE HE IS THE PATIENT HAS HAD CONFLICTING ANSWERS, HE HAS MUMBLED "HOSPITAL" ACCORDING TO HIS CAREGIVERS IN THE ROOM AND HE HAS MUMBLED "I DONT KNOW". ACCORDING TO THE CAREGIVER PRESENT NOW, SHE SAY'S THAT THE PATIENT HAS AGREED TO HAVE PEG TUBE PLACEMENT TO HER BUT SAYS HE DOES'NT WANT TO TELL HOSPITAL EMPLOYEES THAT HE WANTS THE PROCEDURE. I HAVE ASKED HIM MULTIPLE TIMES AND HE REPLIES WITH "NO" VERBALLY OR BY SHAKING HIS HEAD NO. NO NEW COMPLAINTS. Q2H TURNS WITH PILLOWS UNDER HIS HIPS AND FEET. HIS WOUND VAC WAS CHANGED BY THE JEWELRY INSPECTOR THIS AFTERNOON. WILL CONTINUE TO MONITOR
--- NOTE | 2019-07-27 05:01 | NUR ---
SHIFT SUMMARY PT HAD NO COMPLAINTS OF PAIN. PT REPOSITIONED NEEDED. PT WAS FOUND TO BE HYPOTENSIVE AND A ORDER FOR NS WAS ORDERED. BP WAS REASSESSD AND HAS INCREASED. PT IS ABLE TO ANSWER YES/ NO QUESTIONS AND IS EASILY AROUSABLE. PT CAREGIVERS WERE IN THIS SHIFT AND TRIED TO GET HIM TO EAT SOME MCDONALDS. PT LEON IS DRAINING EASYILY DESPITE POOR PO INTAKE. WILL CONTINUE TO MONITOR AND PASS ON TO DAY RN.
[2019-07-27 05:30] LABS: BASOPHILS ABSOLUTE AUTO 0.07 K/mm3 (0.00-0.23); BASOPHILS PERCENT AUTO 1 % (0-2); EOSINOPHILS ABSOLUTE AUTO 0.19 K/mm3 (0.00-0.68); EOSINOPHILS PERCENT AUTO 2 % (0-6); Hematocrit 34.1 % (37.0-53.0); Hemoglobin 11.4 g/dL (13.5-17.5); IMMATURE GRAN ABSOLUTE AUTO 0.32 K/mm3 (0.00-0.10); IMMATURE GRAN PERCENT AUTO 4 % (0-1); LYMPHOCYTES ABSOLUTE AUTO 2.47 K/mm3 (0.84-5.20); LYMPHOCYTES PERCENT AUTO 30 % (21-46); MONOCYTES ABSOLUTE AUTO 0.58 K/mm3 (0.16-1.47); MONOCYTES PERCENT AUTO 7 % (4-13); Mean Corpuscular HGB 28.6 pg (26.0-34.0); Mean Corpuscular HGB Conc 33.4 g/dL (31.5-36.5); Mean Corpuscular Volume 86 fL (80-100); NEUTROPHILS ABSOLUTE AUTO 4.62 K/mm3 (1.96-9.15); NEUTROPHILS PERCENT AUTO 56 % (41-73); Platelet Count 362 K/mm3 (150-400); RDW Coefficient Variation 13.4 % (11.7-14.2); RDW Standard Deviation 40.7 fL (35.1-46.3); Red Blood Cell Count 3.99 M/mm3 (4.30-5.90); White Blood Cell Count 8.25 K/mm3 (4.00-11.30)
[2019-07-27 05:53] LABS: Alanine Aminotransfer (ALT/SGP 14 U/L (12-78); Albumin/Globulin Ratio 0.6 (0.8-1.8); Alk Phos 54 U/L (50-136); Anion Gap 6 mmol/L (6-16); Aspartate Aminotrans (AST/SGOT 21 U/L (12-37); Bilirubin, Total 0.3 mg/dL (0.1-1.0); Blood Urea Nitrogen 16 mg/dL (8-24); CO2, Blood 27 mmol/L (21-32); Chloride, Blood 98 mmol/L (98-108); Creatinine, Blood 0.38 mg/dL (0.60-1.20); Globulin, Blood 3.2 g/dL (2.2-4.0); Glomerular Filtration Rate >60 (60-); Glucose, Blood 74 mg/dL (70-99); Magnesium, Blood 1.9 mg/dL (1.6-2.4); Phosphorus, Blood 3.1 mg/dL (2.5-4.9); Potassium, Blood 4.4 mmol/L (3.5-5.5); Sodium, Blood 131 mmol/L (136-145); Total Protein, Blood 5.2 g/dL (6.4-8.2)
--- NOTE | 2019-07-27 10:55 | NUR ---
CASE MANAGEMENT ISSUES DR LANGFORD WROTE DC ORDERS BUT PT NEEDS WOUND VAC TO BE APPROVED FROM INSURANCE. SPOKE TO MITCH BAGLEY WITH CM AND SPOKE TO PT'S FACILITY, AWAITING APPROVAL FOR WOUND VAC, PROBABLY MONDAY/ OF THIS NEXT WEEK. KARINA WILL ALSO FAX FOR RESUMPTION OF HH WITH [facility]
--- NOTE | 2019-07-27 11:11 | NUR ---
CARE MEETING AT BS WITH PT'S SISTER AND HER (MARIN AND KIRSTEN) AND PT AND DR OLIVER AND JENNA FROM FACILITY. PT FEARFUL OF ANY PROCEDURES BUT ALSO DOESN'T WANT TO . PLAN TO GO BACK TO FACILITY ONCE WOUND VAC APPROVED WITH PROBABLE HOSPICE TO BE INVOLVED. BUT PT IS FULL CODE HERE. UNSURE IF PT HAS CAPACITY TO MAKE OWN DECISIONS, WHEN YOU ASK HIM QUESTIONS, HE GIVES INAPPRORIATE ANSWERS. ASKED HIM 'CAN YOU MOVE YOUR HANDS', AND HE SAYS 'YES', WHEN HE HAS NO MOVEMENT/ABILITY AT ALL TO DO THIS. PER DR OLIVER, WE ARE TO MOVE PT TOWARDS COMFORT CARE, GET PALLIATIVE ON BOARD, TO TAKE VS ONLY ONCE PER SHIFT
--- NOTE | 2019-07-27 11:14 | NUR ---
MARIN (BROTHER IN LAW) AND KIRSTEN (SISTER) PHONE NUMBER IS [phone]
--- NOTE | 2019-07-27 11:16 | NUR ---
TALKED TO DR OLIVER AND INFORMED THAT PT CANNOT LEAVE TODAY DUE TO WOUND VAC AND INSURANCE ISSUES. ACKNOWLEDGED DC ORDER, BUT AWARE THAT IT WON'T BE TODAY, PROBABLY MID-WEEK
[2019-07-27] MEDS ORDERED: Vsl#3 Capsule1 EACH PO (11:23)
[2019-07-27] MEDS ORDERED: CLIN300 PO (11:23)
[2019-07-27] MEDS ORDERED: MIRT15 PO (11:23)
--- NOTE | 2019-07-27 12:30 | NUR ---
Received call from bedside nurse Delcid and discussed case. Pt is resting in bed upon arrival. Caregivers at bedside for first part of conversation. Pt appears orientated. Pt answers questions appropriately such as "is ther a clock in the room" Pt responds "yes", Am I wearing a watch, Pt responds "no", Am I wearing a black shirt, Pt responds "no". All questions answered correctly. Pt reports pain on his coccyx area. He denies anxiety and SOB. Engaged in therapeutic discussion regarding goals of care. Conversation took place regarding Pt denying G-Tube placement. Educated Pt on consequences of insuffeciant caloric intake. Pt's understanding of consequences is questionable. Discussed hospice and comfort care as an option and educated on philosophy. Pt still appears to struggle with understanding. Spoke with Dr Walker and discussed case. Plan will be for Pt to discharge home with home health and transition Pt to hospice. Spoke with bedside nurse Delcid and discussed case. Palliative Care will remain available.
--- NOTE | 2019-07-27 18:43 | NUR ---
SHIFT SUMMARY MITZY COMPLAINED OF PAIN TODAY, BUT DENIED PAIN MEDICATION (OR ANY PO MEDS AT ALL) UNTIL THIS EVENING WHEN HE ACCEPTED [facility]. LOTS OF CARERS VISITED, AND HIS SISTER KIRSTEN AND HER MARIN. PALLIATIVE CARE VISITED (SEE NOTE). POOR PO INTAKE--REFUSED BREAKFAST AND DINNER, BUT ATE PRETTY WELL AT LUNCH. SUPRAPUBIC CATH LEAKING, PT CHANGED AND TURNED EVERY COUPLE HOURS. CBG LOW AT 59 AT ONE POINT, DOCTOR LEE'Hugo WITT. WOUND VAC DRESSING REINFORCED. ASPIRATION PRECAUTIONS FOLLOWED. UNABLE TO TELL ORIENTATION. ANSWERS YES/NO QUESTIONS AND HAS SOME SPEECH, THOUGH GARBLED AND VERY DIFFICULT TO UNDERSTAND. ASKED HIM 'CAN YOU MOVE YOUR HANDS?' AND HE STATES 'YES', BUT WHEN ASKED TO DO IT NOW, HE SAYS 'NO'. CALL LIGHT IN REACH, FREQUENT CHECKS, TM
--- NOTE | 2019-07-27 23:01 | NUR ---
REFUSED MEDICATIONS THIS EVENING PT IS REFUSING ANY MEDICATIONS, HE WAS OFFERED TO TAKE THEM 2X BY WEN Brush RN & MYSELF. PT DENIED WANTING TO TAKE ANYTHING AT THIS TIME. WILL CONTINUE TO MONITOR.
--- NOTE | 2019-07-28 06:12 | NUR ---
SHIFT SUMMARY SLEPT ON/OFF T/O NIGHT. ALERT, UNABLE TO TEST ORIENTATION SINCE PT HAS GARBLED SPEECH & IT IS DIFFICULT TO UNDERSTAND @TIMES. HE DOES ANSWER YES/NO QUESTIONS APPROPRIATELY. ALL EXTREMITIES ARE FLACCID R/T HX CEREBRAL PALSEY. REFUSING ALL MEDICATIONS & MOST CARE. DENIES NAUSEA, PAIN OR DYSPNEA. CHANGED WOUND VAC LAST NIGHT SINCE SUCTION WAS NOT WORKING, CURRENTLY ON CONTINUOUS SUCTION @120 [facility]. HAD 300 ML SANGUINOUS DRAINAGE IN WOUND VAC CANISTER WHEN CHANGED. SUPRAPUBIC CATHETER LEAKING AT INSERTION SITE. TURNED & REPOSITIONED, CALL LIGHT IN REACH.
--- NOTE | 2019-07-29 06:39 | NUR ---
SHIFT SUMMARY PT CACHECTIC LOOKING. REFUSED ALL HIS MEDS, DID NOT WANT TO SIT UP 90 DEGREES TO SWALLOW PILLS AND REFUSED HIS PILLS. HARD TO UNDERSTAND HIS GARBLED SPEECH BUT CAN KIND OF NOD YES OR NO TO QUESTIONS. HE WAS ABLE TO SLEEP T/O NIGHT OFF AND ON. WOUND VAC DRAINAGE SANGUIENOUS FLUID. Q2HR REPOSITION.
--- NOTE | 2019-07-29 19:37 | NUR ---
SHIFT SUMAMRY: NO ACUTE CHANGES TO REPROT THIS SHIFT. PT HX CEREBRAL PALSY; ANSWERS YES/NO QUESTIONS WITH NODS. MEDICATED FOR COCCYX WOUND PER EMAR. WOUND VAC DRESSING CHANGED TODAY; NEW PHOTO TAKEN. ASPIRATION PRECAUTIONS; MEDS WHOLE IN APPLESAUCE. REPORT GIVEN TO ONCOMING RN.
--- NOTE | 2019-07-30 05:24 | NUR ---
SHIFT SUMMARY PT CEREBRAL PALSY HARD FOR HIM TO COMMUNICATE AND UNDERSTAND HIM. HE DID TAKE ALL HIS MEDS IN APPLESAUCE AND THEN WAS ABLE TO SLEEP THROUGH THE NIGHT. SUPRAPUBIC CATH STILL LEAKING FROM INSERTION SITE. Q2HR REPOSITIONING. WOUND VAC DRAINING SCANT AMOUNT OF SANGUINOUS FLUID. ALDO HOSE IN PLACE. CG CAME TO VISIT ONCE AT ABOUT 0500.
--- NOTE | 2019-07-30 06:32 | NUR ---
PT BP THIS AM 87/59 AND HIS BP HAS BEEN RUNNING AROUND 90'S/60'S. HE WAS SLEEPING VERY HEAVILY COMPARED TO PREVIOUS NIGHT WHERE HE WAS JUST DOZING, PROBABLY SINCE HE TOOK HIS HS MEDS LAST PM. CALLED DR RAMIREZ AND SHE ORDER LR 500 BOLUS. WILL CONTINUE TO MONITOR AND PASS ON TO DAY RN.
--- NOTE | 2019-07-30 12:36 | NUR ---
PATIENT DISCHARGE: PATIENT DISCHARGED/ XFR TO HOME HEALTH THIS SHIFT. MEDICATION RECONCILIATION COMPLETED; MED LSIT SENT TO [facility]. PATIENT TRANSPORTED TO EXIT BY [facility] WITH DANGELO @ 2302. DISCHARGE EDUCATION COMPLETED c [facility]. PATIENT DEPARTED [facility] VIA [facility].
--- NOTE | 2019-07-30 14:21 | NUR ---
Met pt in bed resting and the nurse in the room preparing pt. for transfer to Rehab. offered prayers , blessing and spiritual support.
== END 2019-07-30 12:18 | disposition home health service (06) | DRG 673 ==
LOC: ER 15:00 → MEDS 17:53 → ICUW 17:53 → MEDS 07-21 12:03 → ENPENDDIS 07-27 10:57 → MEDS 07-30 12:18
PROVIDERS: Emergency Medicine; Family Medicine; Hospitalist; Internal Medicine; Surgery; ADMIT Internal Medicine
PROC: 0HB6XZZ Excision of Back Skin, External Approach (ICD-10-PCS; 2019-07-19)
PROC: 0QB10ZX Excision of Sacrum, Open Approach, Diagnostic (ICD-10-PCS; principal; 2019-07-19 11:00)
PROC: 02HV33Z Insertion of Infusion Device into Superior Vena Cava, Percutaneous Approach (ICD-10-PCS; 2019-07-19 11:00)
DX: T83.510A Infection and inflammatory reaction due to cystostomy catheter, initial encounter (principal); L89.154 Pressure ulcer of sacral region, stage 4; E43 Unspecified severe protein-calorie malnutrition; R65.21 Severe sepsis with septic shock; J96.01 Acute respiratory failure with hypoxia; A40.9 Streptococcal sepsis, unspecified; J18.9 Pneumonia, unspecified organism; E87.1 Hypo-osmolality and hyponatremia; D62 Acute posthemorrhagic anemia; R64 Cachexia; G80.9 Cerebral palsy, unspecified; F32.9 Major depressive disorder, single episode, unspecified; Z99.3 Dependence on wheelchair; I10 Essential (primary) hypertension; E78.5 Hyperlipidemia, unspecified; E03.9 Hypothyroidism, unspecified; E11.51 Type 2 diabetes mellitus with diabetic peripheral angiopathy without gangrene; N40.1 Benign prostatic hyperplasia with lower urinary tract symptoms; Z79.4 Long term (current) use of insulin; E86.0 Dehydration
CPT/HCPCS: 36415; 71045; 76770; 80048; 80053; 80202; 81001; 82533; 82947; 83605; 83735; 83880; 84100; 85025; 87040; 87071; 87075; 87076; 87077; 87081; 87086; 87184; 87185; 87186; 87205; 88304; 88305; 92526; 92610; 93005; 93010; 93306; 96361; 96365; 96368; 99283; 99285-25; A9270; C1751; G0463; J1644; J1940; J1956; J2185; J2270; J2370; J2704; J3010; J3370; J3480; J7030; J7040; J7060; J7120

== ENCOUNTER 2019-08-01 11:20 | Observation (INO) | payer OTHER ==
[~2019-08-01] VITALS: Ht 165.1 cm; Wt 51.8 kg
[~2019-08-01 11:20] MED LIST changes: +BACL10 PO; +BISA5EC PO; +CAMPHO PHENIQUE TOP; +CLIN300 PO; +Flonase 0.05% N16 GM; +GABA300 PT; +Gentak3.5 GM TOP; +Glucagon Emergen1 MG IM; +Loratadine10 MG PO; +MEGESTROL400 MG/10 PO; +MIRT15 PO; +Mupirocin22 GM TOP; +Norco 10-325 T1 EACH PO; +PERIDEX15 ML MT; +POLYSPORIN TOP; +SANTYL30 GM TOP; +SENN187 PO; +SILVER SULFADIA50 G1 TOP; +Vsl#3 Capsule1 EACH PO
[2019-08-01] MEDS ORDERED: Lisinopril2.5 MG PO (11:47)
[2019-08-01 13:24] LABS: Alanine Aminotransfer (ALT/SGP 17 U/L (12-78); Albumin, Blood 2.3 g/dL (3.4-5.0); Albumin/Globulin Ratio 0.6 (0.8-1.8); Alk Phos 102 U/L (50-136); Anion Gap 7 mmol/L (6-16); Aspartate Aminotrans (AST/SGOT 18 U/L (12-37); Bilirubin, Total 0.3 mg/dL (0.1-1.0); Blood Urea Nitrogen 18 mg/dL (8-24); Bun/Creatinine Ratio 48.5 (12.0-20.0); CO2, Blood 23 mmol/L (21-32); Calcium, Blood 8.5 mg/dL (8.5-10.1); Chloride, Blood 101 mmol/L (98-108); Creatinine, Blood 0.37 mg/dL (0.60-1.20); Globulin, Blood 3.9 g/dL (2.2-4.0); Glomerular Filtration Rate >60 (60-); Glucose, Blood 227 mg/dL (70-99); Potassium, Blood 4.5 mmol/L (3.5-5.5); Sodium, Blood 131 mmol/L (136-145); Total Protein, Blood 6.2 g/dL (6.4-8.2)
[2019-08-01] MEDS ORDERED: PERIDEX15 ML MM (13:26)
[2019-08-01 14:30] LABS: BASOPHILS ABSOLUTE AUTO 0.06 K/mm3 (0.00-0.23); BASOPHILS PERCENT AUTO 0 % (0-2); EOSINOPHILS ABSOLUTE AUTO 0.04 K/mm3 (0.00-0.68); EOSINOPHILS PERCENT AUTO 0 % (0-6); Hematocrit 30.2 % (37.0-53.0); Hemoglobin 9.9 g/dL (13.5-17.5); IMMATURE GRAN ABSOLUTE AUTO 0.13 K/mm3 (0.00-0.10); IMMATURE GRAN PERCENT AUTO 1 % (0-1); LYMPHOCYTES ABSOLUTE AUTO 0.84 K/mm3 (0.84-5.20); LYMPHOCYTES PERCENT AUTO 5 % (21-46); MONOCYTES ABSOLUTE AUTO 0.44 K/mm3 (0.16-1.47); MONOCYTES PERCENT AUTO 3 % (4-13); Mean Corpuscular HGB 29.3 pg (26.0-34.0); Mean Corpuscular HGB Conc 32.8 g/dL (31.5-36.5); Mean Corpuscular Volume 89 fL (80-100); Mean Platelet Volume 10.5 fL (9.1-12.4); NEUTROPHILS PERCENT AUTO 92 % (41-73); Platelet Count 347 K/mm3 (150-400); RDW Coefficient Variation 14.9 % (11.7-14.2); RDW Standard Deviation 46.5 fL (35.1-46.3); Red Blood Cell Count 3.38 M/mm3 (4.30-5.90); White Blood Cell Count 17.81 K/mm3 (4.00-11.30)
--- NOTE | 2019-08-01 14:45 | NUR ---
Assumed care of patient Pt arrived from ER to room 354, transferred over to bed from [facility] by sliding. Pt admitted with wound vac from home in place and care givers at bedside. Per caregivers, Scottykelli is involved in care and there is to NOT be any major health care decisions made without caregivers at bedside. Pt has cerebral palsy so he is baseline bedbound and hard to verbally communicate with and understand, speech is incomprehensible. Room air, chronic suprapubic cath patent and draining. Wound vac and dressing on decubitis ulcer changed today, pictures in chart. Ulcer on sacrum measures depth 0.8 cm, length 5 cm, and width 4 cm; tunneling measures 3 o'clock 2.3cm, 6 o'clock 2cm, 9 o'clock 2.2cm, and 12 o'clock 2cm. Pt settled into room, caregivers and pt oriented to call light and STUDENT LIFE COORDINATOR system. Call light in reach.
--- NOTE | 2019-08-01 18:14 | NUR ---
Shift Summary Patient has been cooperative with care with the presence of care givers at the bedside. Critical lactic of 2.9 charted and notified charge managerDora. Paged Dr. Coe, but have not received call back. Charge nurse aware, patient is stable and no change in status since admission. Both initial and repeat lactic remains the same 2.9. No other changes.
--- NOTE | 2019-08-02 06:27 | NUR ---
SHIFT SUMMARY PT IS A 63 Y/O MALE, ADMITTED FOR SACRAL DECUBITUS ULCERS. PT HAS A HX OF CEREBRAL PALSY, AND IS FROM [facility]. PT HAD CAREGIVERS IN THE ROOM THROUGH THE NIGHT, AND WILL GET ANXIOUS WITH STAFF WHEN CAREGIVERS ARE NOT IN THE ROOM. PT DENIED ANY COMPLAINTS OF PAIN, NAUSEA OR SOB. BP REMAINED LOW IN THE 90S SYSTOLICALLY. ALL OTHER VITALS STABLE. NO OTHER ACUTE CHANGES IN PT CONDITION NOTED. WILL CONTINUE TO MONITOR AND TREAT PER EMAR UNTIL HAND OFF TO DAY SHIFT RN.
[2019-08-02 07:20] LABS: BASOPHILS ABSOLUTE AUTO 0.08 K/mm3 (0.00-0.23); BASOPHILS PERCENT AUTO 1 % (0-2); EOSINOPHILS ABSOLUTE AUTO 0.11 K/mm3 (0.00-0.68); EOSINOPHILS PERCENT AUTO 1 % (0-6); Hematocrit 27.6 % (37.0-53.0); Hemoglobin 8.9 g/dL (13.5-17.5); IMMATURE GRAN ABSOLUTE AUTO 0.08 K/mm3 (0.00-0.10); IMMATURE GRAN PERCENT AUTO 1 % (0-1); LYMPHOCYTES ABSOLUTE AUTO 1.56 K/mm3 (0.84-5.20); LYMPHOCYTES PERCENT AUTO 19 % (21-46); MONOCYTES ABSOLUTE AUTO 0.51 K/mm3 (0.16-1.47); MONOCYTES PERCENT AUTO 6 % (4-13); Mean Corpuscular HGB 29.1 pg (26.0-34.0); Mean Corpuscular HGB Conc 32.2 g/dL (31.5-36.5); Mean Corpuscular Volume 90 fL (80-100); Mean Platelet Volume 10.1 fL (9.1-12.4); NEUTROPHILS PERCENT AUTO 71 % (41-73); Platelet Count 293 K/mm3 (150-400); RDW Standard Deviation 47.4 fL (35.1-46.3); Red Blood Cell Count 3.06 M/mm3 (4.30-5.90); White Blood Cell Count 8.14 K/mm3 (4.00-11.30)
[2019-08-02 07:36] LABS: Alanine Aminotransfer (ALT/SGP 10 U/L (12-78); Albumin, Blood 1.9 g/dL (3.4-5.0); Albumin/Globulin Ratio 0.6 (0.8-1.8); Alk Phos 75 U/L (50-136); Anion Gap 6 mmol/L (6-16); Aspartate Aminotrans (AST/SGOT 6 U/L (12-37); Bilirubin, Total 0.2 mg/dL (0.1-1.0); Blood Urea Nitrogen 12 mg/dL (8-24); Bun/Creatinine Ratio 46.2 (12.0-20.0); CO2, Blood 24 mmol/L (21-32); Calcium, Blood 7.6 mg/dL (8.5-10.1); Chloride, Blood 107 mmol/L (98-108); Creatinine, Blood 0.26 mg/dL (0.60-1.20); Globulin, Blood 3.1 g/dL (2.2-4.0); Glomerular Filtration Rate >60 (60-); Glucose, Blood 187 mg/dL (70-99); Potassium, Blood 4.3 mmol/L (3.5-5.5); Sodium, Blood 137 mmol/L (136-145)
--- NOTE | 2019-08-02 10:37 | NUR ---
RECEIEVED A CALL FROM DAY SURGERY. PATIENT TO BE TAKEN FOR PEG-TUBE PLACEMENT. 18G IV PLACED. PATIENT WAITING IN ROOM FOR TRANSPORT.
--- NOTE | 2019-08-02 11:23 | NUR ---
PT HAS CP AND IS DIFFICULT TO UNDERSTAND. PT PRESENT WITH CAREGIVERS FROM [facility]. PT IS SCHEDULED FOR PEG TUB. THEY REPORT NPO STATUS. DIFFICULT TO ASSESS LS DUE TO PT NOT RESPONDING TO REQUESTS TO DEEP BREATH. BIOX 98% ON RA. History, Chart, Medications and Allergies reviewed before start of procedure. Pre-Op teaching done. Pt verbalizes understanding.
--- NOTE | 2019-08-02 11:36 | NUR ---
PATIENT LEFT TO DAY SURGERY JUST AFTER 1100.
--- NOTE | 2019-08-02 12:08 | NUR ---
08/02/19 1208 Mirella Bloom A Patient to ENDO [address] NORIEGA PROVIDES ANESTHESIA.
--- NOTE | 2019-08-02 12:53 | NUR ---
PATIENT RETURNED TO ROOM FROM SURGERY. ALERT TO BASELINE. SETTLED IN BED. VITALS CHECKED AND TO CONTINUE PER POST-OP VITALS PROTOCOL. CAREGIVER FROM [facility] AT BEDSIDE.
--- NOTE | 2019-08-02 15:10 | NUR ---
SHIFT SUMMARY THE PATIENT HAS HAD AN UNEVENTFUL SHIFT. HAD FEEDING TUBE PLACED THIS MORNING WITHOUT COMPLICATIONS. VITALS BEING MONITORED PER POST-OP PROTOCOL AND HAVE REMAINED STABLE. PATIENT CONTINUES ON PO AND IV ABX WITHOUT S/SX OF ADVERSE REACTIONS NOTED OR REPORTED. REPOSITIONING OF PATIENT Q2HRS AND PRN. WILL CONTINUE TO MONITOR AND PROVIDE CARE NEEDED.
[2019-08-03 04:53] LABS: BASOPHILS PERCENT AUTO 1 % (0-2); EOSINOPHILS ABSOLUTE AUTO 0.21 K/mm3 (0.00-0.68); EOSINOPHILS PERCENT AUTO 2 % (0-6); Hematocrit 29.3 % (37.0-53.0); Hemoglobin 9.5 g/dL (13.5-17.5); IMMATURE GRAN ABSOLUTE AUTO 0.08 K/mm3 (0.00-0.10); IMMATURE GRAN PERCENT AUTO 1 % (0-1); LYMPHOCYTES ABSOLUTE AUTO 1.05 K/mm3 (0.84-5.20); LYMPHOCYTES PERCENT AUTO 12 % (21-46); MONOCYTES ABSOLUTE AUTO 0.38 K/mm3 (0.16-1.47); MONOCYTES PERCENT AUTO 4 % (4-13); Mean Corpuscular HGB 28.6 pg (26.0-34.0); Mean Corpuscular HGB Conc 32.4 g/dL (31.5-36.5); Mean Corpuscular Volume 88 fL (80-100); Mean Platelet Volume 10.8 fL (9.1-12.4); NEUTROPHILS PERCENT AUTO 80 % (41-73); Platelet Count 343 K/mm3 (150-400); RDW Coefficient Variation 15.5 % (11.7-14.2); RDW Standard Deviation 47.9 fL (35.1-46.3); Red Blood Cell Count 3.32 M/mm3 (4.30-5.90); White Blood Cell Count 9.12 K/mm3 (4.00-11.30)
[2019-08-03 05:11] LABS: Anion Gap 7 mmol/L (6-16); Blood Urea Nitrogen 10 mg/dL (8-24); Bun/Creatinine Ratio 29.5 (12.0-20.0); CO2, Blood 25 mmol/L (21-32); Calcium, Blood 7.6 mg/dL (8.5-10.1); Chloride, Blood 106 mmol/L (98-108); Creatinine, Blood 0.34 mg/dL (0.60-1.20); Glomerular Filtration Rate >60 (60-); Glucose, Blood 207 mg/dL (70-99); Potassium, Blood 3.8 mmol/L (3.5-5.5); Sodium, Blood 138 mmol/L (136-145)
--- NOTE | 2019-08-03 05:37 | NUR ---
DR SEO REPORTED TO DR. RODRIGUEZ OF PATIENTS RECENT TREND OF RESPIRATIONS OVER 20 AND INCREASED HEART RATE SINCE 0000. REPORTED PATIENT DENIES PAIN, NAUSEA, OR DISCOMFORT OF ANY KIND. REPORTED VEWS SCORE OF 5 AT 0422 WHICH DECREASED TO 4 HALF AN HOUR LATER. DR. RODRIGUEZ SAID TO KEEP MONITORING PATIENT.
--- NOTE | 2019-08-03 05:40 | NUR ---
SHIFT SUMMARY PATIENT HAD INCREASED RESPIRATIONS BETWEEN 20 AND 28, AND HEART RATE BETWEEN 100 AND 115 SINCE 0000. CHARGE NURSE AND DONOR SERVICES COORDINATOR PHYSICIAN BOTH NOTIFIED. WILL BE CONTINUING TO MONITOR VITAL SIGNS FREQUENTLY. THERE IS AN ORDER FOR PATIENTS HOB TO BE ELEVATED TO 45 DEGREES. PATIENT UNABLE TO TOLERATE THIS FOR VERY LONG AND PREFERS TO SLEEP WITH HOB FLAT LIKE HE DOES AT HOME. PEG TUBE SITE LOOKS GOOD, FREE OF REDNESS AND DRAINAGE. PATIENT DENIES EXPERIENCING ANY PAIN. BOTH IVS PATENT, RIGHT IV FLUSHED AND LEFT IV INFUSING AT 100 ML/HR. LEON CATHETER PATENT AND FLOWING. WOUND VAC PRODUCING SCANT AMOUNT OF SEROUS FLUID FROM WOUND ON COCCYX. BED IN LOWEST POSITION WITH BRAKES LOCKED. CALL LIGHT WITHIN REACH. REPORT GIVEN TO ONCOMING RN.
--- NOTE | 2019-08-03 08:40 | NUR ---
PT REFUSING TO SIT UP PT REFUSING TO SIT UPRIGHT. PT STATES HE WANTS BREAKFAST, BUT WILL NOT SIT UP TO EAT IT. PT ENCOURAGED & EDUCATED THAT HE MUST SIT UP TO AVOID CHOKING. PT STILL REFUSING TO SIT UP. STAFF UNABLE TO FEED PT LAYING DOWN. BREAKFAST HELD AT THIS TIME.
--- NOTE | 2019-08-03 14:45 | NUR ---
TUBE FEEDING TUBE FEED STARTED THIS AFTERNOON. PT IN REVERSE [place] WITH HOB RAISED SLIGHTLY. DR. KEENE & RENETTA JOHANSEN NOTIFIED OF PT INABILITY TO SIT AT LEAST 30 DEGREES. ELENO & DR. KEENE AGREED TO LOWER TUBE FEEDING RATE TO 10ML/HR & RAISE HEAD OF BED FAR PT CAN TOLERATE. NO OTHER CHANGES. PT REASSESSED. NO SIGNS OF COUGHING OR CHOKING. WILL CONTINUE TO MONITOR.
--- NOTE | 2019-08-03 15:31 | NUR ---
CALLED DR KEENE AND REQUESTED SOME ANTI-ANXIETY MEDICATION AND LIQUID LIDOCAINE TO ASSIST WITH PATIENT'S WOUND VAC CHANGE. RECIEVED ORDERS DOCUMENTED IN EMAR. WILL BE CHANGING WOUND VAC THIS AFTERNOON.
--- NOTE | 2019-08-03 15:35 | NUR ---
SHIFT SUMMARY PT STARTED ON TUBE FEEDING SEE NOTE. PT TOLERATED WELL AT THIS TIME. PT MEDICATED FOR PAIN ONCE THIS SHIFT. VSS. NO CHANGES IN ASSESSMENT AT THIS TIME. REPORT GIVEN TO GUDELIA Aldrich RN.
--- NOTE | 2019-08-03 16:35 | NUR ---
CHANGED PATIENTS WOUND VAC TO THE COCCYX. PRE-MEDICATED PATIENT WITH XANAX AND NORCO, USED TOPICAL LIDOCAINE IN WOUND PRIOR TO REMOVING BLACK FOAM. PATIENT TOLERATED PROCEDURE VERY WELL, WITHOUT ANY COMPLAINTS.
--- NOTE | 2019-08-03 22:21 | NUR ---
RIGHT HAND IV REMOVED. ATTEMPTED TO FLUSH AND FLUID WOULD NOT FLOW AND LEAKED FROM THE IV INSERTION SITE.
--- NOTE | 2019-08-04 05:55 | NUR ---
SHIFT SUMMARY PATIENT RESTED COMFORTABLY ALL NIGHT. HIS RIGHT HAND IV WAS NOT PATENT AND WAS LEAKING SO IT WAS REMOVED. IV IN LEFT FOREARM PATENT AND INFUSING. HE WAS CALM AND COOPORATIVE AND DID NOT NEED PRN ANXIETY OR PAIN MEDS. PEG TUBE INSERTION SITE IS CLEAN/DRY/AND INTACT. BED IN LOWEST POSITION WITH WHEELS LOCKED. CALL LIGHT WITHIN REACH. REPORT GIVEN TO ONCOMING RN.
[2019-08-04 07:44] LABS: Vancomycin, Trough 15.3 ug/mL (5.0-10.0)
[2019-08-04 07:54] LABS: Anion Gap 5 mmol/L (6-16); Blood Urea Nitrogen 9 mg/dL (8-24); Bun/Creatinine Ratio 26.8 (12.0-20.0); CO2, Blood 26 mmol/L (21-32); Calcium, Blood 7.7 mg/dL (8.5-10.1); Chloride, Blood 105 mmol/L (98-108); Creatinine, Blood 0.34 mg/dL (0.60-1.20); Glomerular Filtration Rate >60 (60-); Glucose, Blood 130 mg/dL (70-99); Magnesium, Blood 1.5 mg/dL (1.6-2.4); Phosphorus, Blood 2.9 mg/dL (2.5-4.9); Potassium, Blood 4.1 mmol/L (3.5-5.5); Sodium, Blood 136 mmol/L (136-145)
--- NOTE | 2019-08-04 17:55 | NUR ---
SHIFT SUMMARY PT TUBE FEEDING INCREASED TO 20ML/HR. FLUSH 100ML Q4H. PT TOLERATING WELL & RESTING AT 30 DEGREES WITHOUT COMPLAINING. PT DENIED NEED FOR PAIN MEDS THIS AFTERNOON. WILL CONTINUE TO MONITOR DISCOMFORT. WOUND VAC REENFORCED. SEALED WELL AT THIS TIME. NO SIGNS OF LEAKS. PT RECIEVED BED BATH THIS SHIFT. TOLERATED WELL. SUPRAPUBIC CATHETER FLUSHED THIS SHIFT. NS RUNNING 100ML/HR. NO OTHER CHANGES THIS SHIFT. WILL CONTINUE TO MONITOR UNTIL TURNOVER IS COMPLETE.
--- NOTE | 2019-08-04 18:38 | NUR ---
[facility] CALLED SPOKE WITH JOEY ATTEMPTING TO IDENTIFY PATIENT NEEDS PATIENT WAS REPEATING A PHRASE "UP". STAFF UNABLE TO DETERMINE MEANING. JOEY HAD SUGGESTIONS TO GET PATIENT INTO A FICKLE POSITION TO COMFORT PATIENT IT CAN BE TEDIOUS POSITIONING TO SATISFY PATIENT. JOEY IS FINISHING TASKS AT [facility] AND WILL MAKE A VISIT THIS EVENING TO ATTEMPT TO INTERPRET NEEDS OF PATIENT. RN WILL ATTEMPT MULTIPLE POSITIONS TOLERATED BY PATIENT.
--- NOTE | 2019-08-05 03:10 | NUR ---
URINARY: UPRA PUBIC CATHETER IS LEAKING, LOTS OF SEDIMENT PRESENT. WILL CONTINUE TO MONITOR.
--- NOTE | 2019-08-05 04:35 | NUR ---
PHYSICIAN COMMUNICATION I CALLED THE SUPERVISOR HOUSECLEANER PHYSICIAN AND REPORTED THAT THE PATIENT'S SUPRAPUBIC CATHETER IS CLOGGED WITH SEDIMENT AND NOT FLOWING PROPERLY AND THAT IT IS LEAKING. DR BARRETT ORDERD FOR THE CATHETER TO BE CHANGED.
[2019-08-05 05:10] LABS: BASOPHILS PERCENT AUTO 1 % (0-2); EOSINOPHILS ABSOLUTE AUTO 0.28 K/mm3 (0.00-0.68); EOSINOPHILS PERCENT AUTO 4 % (0-6); Hematocrit 32.1 % (37.0-53.0); Hemoglobin 10.6 g/dL (13.5-17.5); IMMATURE GRAN ABSOLUTE AUTO 0.06 K/mm3 (0.00-0.10); IMMATURE GRAN PERCENT AUTO 1 % (0-1); LYMPHOCYTES ABSOLUTE AUTO 1.62 K/mm3 (0.84-5.20); LYMPHOCYTES PERCENT AUTO 23 % (21-46); MONOCYTES ABSOLUTE AUTO 0.59 K/mm3 (0.16-1.47); MONOCYTES PERCENT AUTO 8 % (4-13); Mean Corpuscular HGB 28.9 pg (26.0-34.0); Mean Corpuscular Volume 88 fL (80-100); Mean Platelet Volume 9.8 fL (9.1-12.4); NEUTROPHILS ABSOLUTE AUTO 4.47 K/mm3 (1.96-9.15); NEUTROPHILS PERCENT AUTO 63 % (41-73); Platelet Count 306 K/mm3 (150-400); RDW Coefficient Variation 15.1 % (11.7-14.2); RDW Standard Deviation 47.8 fL (35.1-46.3); Red Blood Cell Count 3.67 M/mm3 (4.30-5.90); White Blood Cell Count 7.12 K/mm3 (4.00-11.30)
[2019-08-05 05:30] LABS: Magnesium, Blood 1.6 mg/dL (1.6-2.4)
[2019-08-05 05:31] LABS: Alanine Aminotransfer (ALT/SGP 21 U/L (12-78); Albumin/Globulin Ratio 0.6 (0.8-1.8); Alk Phos 65 U/L (50-136); Anion Gap 4 mmol/L (6-16); Aspartate Aminotrans (AST/SGOT 14 U/L (12-37); Bilirubin, Total 0.2 mg/dL (0.1-1.0); Blood Urea Nitrogen 14 mg/dL (8-24); Bun/Creatinine Ratio 41.2 (12.0-20.0); CO2, Blood 28 mmol/L (21-32); Calcium, Blood 8.1 mg/dL (8.5-10.1); Chloride, Blood 104 mmol/L (98-108); Creatinine, Blood 0.34 mg/dL (0.60-1.20); Globulin, Blood 3.6 g/dL (2.2-4.0); Glomerular Filtration Rate >60 (60-); Glucose, Blood 131 mg/dL (70-99); Potassium, Blood 3.8 mmol/L (3.5-5.5); Sodium, Blood 136 mmol/L (136-145); Total Protein, Blood 5.6 g/dL (6.4-8.2)
--- NOTE | 2019-08-05 05:43 | NUR ---
SHIFT SUMMARY PATIENT TOLERATING TUBE FEEDING AND HOB BEING ELEVATED TO 30 DEGREES FAIRLY WELL. HE WAS ABLE TO REST MOST OF THE NIGHT. HIS SUPRAPUBIC CATHETER HAS BECOME CLOGGED WITH SEDIMENT AND IS NOT FLUSHING EFFECTIVELY AND IS LEAKING LARGE AMOUNTS OUT FROM THE INSERTION SITE. A DRS ORDER HAS BEEN OBTAINED TO CHANGE THE CATHETER. THE ADHESIVE TAPE AROUND THE WOUND VAC SITE HAD COME LOOSE AND COMPROMISED SUCTION. THE TAPE HAS BEEN TRIMMED AND REINFORCED. IV IN LEFT FOREARM IS PATENT AND INFUSING WITH NORMAL SALINE AT 100 MLS AN HOUR. BED IN LOWEST POSITION WITH WHEELS LOCKED. CALL LIGHT WITHIN REACH. REPORT GIVEN TO ONCOMING RN.
--- NOTE | 2019-08-05 17:01 | NUR ---
SHIFT SUMMARY NO ACUTE CHANGES THIS SHIFT. NO PAIN MEDICATION GIVEN THIS SHIFT. WOUND VAC DRESSING ON COCCYX CHANGED. MINIMAL ORAL INTAKE THIS SHIFT. INSTRUCTED PERSONAL CAREGIVERS TO REFRIDGERATE FOOD THAT IS BROUGHT IN TO REDUCE FOOD BORN PATHOGENS. BED ALARM ON FOR SAFETY, SIDE RAIL UP AND CALL LIGHT WITHIN REACH. WILL COUNTINUE TO MONITOR THIS SHIFT.
--- NOTE | 2019-08-05 20:38 | NUR ---
PATIENT ALERT WATCHING TV, NONVERBAL USES EYE MOVEMENT FOR RESPONSES. STATES HE WAS DIRTY AND NEEDED TO BE CHANGED. GOT SUPERVISOR POST WAVE HELP. STOPPED TUBE FEED FOR CHANGE. BM NOTED BUT HE CONTINUED TO GO. CLEANED UP THE BEST WE CAN TILL HE IS FINISHED. WOUND VAC INTACT AND DRAINING. CATHETER PATENT AND DRAINING BUT LEAKING AROUND OSTOMY SITE. WHICH INCREASES WHEN YOU TURN THE PATENT. PLACED A CLEAN GAUZE AROUND TUBING. NOTICED TUBING WAS IN THE STAT LOCK BUT CONTINUED TO PULL, FIXED IN THE LOCK. REPOSITIONED HIM, IN BED. FLOATED HEELS. PLACED AT 30 DEGREES PATIENT REFUSES TO GO HIGHER CAUSE OF SACRAL DECUB. IV INFUSING WITH NO PROBLEM. CALL LIGHT IN REACH.
--- NOTE | 2019-08-06 05:28 | NUR ---
SHIFT SUMMARY: 63 Y/O MALE WITH CERBRAL PALSY ADMITTED FOR SACRAL DECUB. PATIENTS IV FLUIDS INFUSED THROUGHOUT THE NIGHT, PEG TUBE INFUSED GLUCERNA 1.2. WOUND VAC REMAINED INTACT WITH NO LEAKAGE, DRAINING SMALL AMOUNTS OF SEROUS SANGUOUS DRAINAGE. CATHETER REMAINED PATENT BUT LEAKED OFF AND ON THIS SHIFT, DRESSING CHANGED AROUND. ATTENDS CHANGE WITH 1 BM DONE. CAREGIVER CAME IN AND FEED FAST FOOD TO THE PATIENT. HOB REMAINED AT 30 DEGREES THIS SHIFT. NO ACUTE CHANGES OR CONCERNS WERE NOTED. CALL LIGHT REMAINED NEAR HIS HEAD, HE WAS ROUNDED ON FREQUENTLY. WILL REPORT TO DAY SHIFT RN.
[2019-08-06 07:20] LABS: Anion Gap 5 mmol/L (6-16); Blood Urea Nitrogen 9 mg/dL (8-24); Bun/Creatinine Ratio 29.7 (12.0-20.0); CO2, Blood 27 mmol/L (21-32); Calcium, Blood 7.6 mg/dL (8.5-10.1); Chloride, Blood 107 mmol/L (98-108); Glomerular Filtration Rate >60 (60-); Glucose, Blood 193 mg/dL (70-99); Magnesium, Blood 1.5 mg/dL (1.6-2.4); Phosphorus, Blood 2.9 mg/dL (2.5-4.9); Potassium, Blood 3.6 mmol/L (3.5-5.5); Sodium, Blood 139 mmol/L (136-145)
--- NOTE | 2019-08-06 18:05 | NUR ---
SHIFT SUMMARY NO ACUTE CHANGES THIS SHIFT. MEDICATED X1 FOR PAIN PRIOR TO DRESSING CHANGE, WOUND VAC DRESSING CHANGED. PT TOLORATED PO FLUIDS WELL THAT CAREGIVERS BROUGHT IN. INACCURATE AMOUNTS OF URINE IN LEON BAG DO TO LARGE AMOUNTS OF URINE LEEKING AROUND SUPER PUBIC CATH SITE. TUB FEEDINGS CHANGED TO BOLUS PT TOLERATING WELL.
--- NOTE | 2019-08-06 20:17 | NUR ---
PATIENT WATCHING TV, FLOATED UP ON PILLOWS, BED IN LOW POSITION. ABLE TO VERBALIZE NEEDS WITH EYE MOVEMENT AND FORMS SOME WORDS. LUNG SOUNDS ARE CLEAR, HR REGULAR, CATHETER WITH LITTLE URINE NOTED IN BAG. LEAKAGE IN EXCESSIVE AMOUNT OF OF SUPERPUBIC OSTOMY SITE, TUBE FILLED WITH THICK YELLOW SEDIMENT. REMOVED SATURATED BIBI PAD. FLUSHED WITH 60ML NS, LEAKAGE NOTED AROUND SITE WHEN FLUSHED, REPOSITIONED CATHETER FOR DRAINAGE. NEW PERIPAD PLACED, WILL REASSESS, WOUND VAC DRESSING INTACT AND DRAINING LITTLE SS FLUID. IV FLUSHED AND ANTIBOTIC STARTED. ADMINISTERED 30ML FLUSH VIA KANGROO PUMP TO PEG TUBE, THEN 240ML OF GLUCERNIA 1.2, 30 ML FLUSH AGAIN. ADMINISTERED PILLS VIA APPLESAUCE, HE REFUSED HIS GRACY DRINK. WILL REASSESS CATHETER WHEN IV IS COMPLETE.
--- NOTE | 2019-08-06 22:15 | NUR ---
LEON CATHETER CHANGED PER ORDER. CATHETER CONTINUED TO HAVE PRESISTENT LEAKAGE IN EXCESSIVE ABOUT GOING THROUGH EXTRA LARGE PERIPADS, FLUSHING WAS DIFFICULT AND JUST LEAKED AROUND SITE. LITTLE TO NO URINE WAS GOING INTO THE BAG. CALLED BENOIT WILKINS, GOT ORDER TO CHANGE CATHETER TONIGHT USING DUETTE CATHETER CAREGIVERS BROUGHT. CATHETER TIP WHEN REMOVED WAS PLUGGED WITH THICK YELLOW SEDIMENT AND MUCUS. ONCE REMOVED LARGE AMOUNT OF URINE FLOWED OUT OF OSTOMY SITE. PLACED NEW DUETTE CATHETER PER PROTOCOLS. 10ML WAS PLACED IN ONE BALLOON AND 5ML WAS PLACED IN THE OTHER. URINE RETURN WAS NOTED. PLACED NEW DRESSING AROUND SITE. WILL MONITOR FOR MORE LEAKAGE.
--- NOTE | 2019-08-06 23:50 | NUR ---
WOUND VAC DRESSING CHANGED, LEAKAGE NOTED DURING CLEAN UP OF BOWEL MOVEMENT. REMOVED DRESSING AND 1 PEICE BLACK FOAM. WOUND BED 60% GRANULATION TISSUE, REST IS SLOUGH AND BONE MATERIAL. THERE IS UNDERMINING FROM 5 OCLOCK TO 12 OCLOCK, NO ODOR NOTED. EDGES PINK, SURROUNDING TISSUE PINK EXCEPT AT 5 TO 8 OCLOCK THERE IS DEEP TISSUE INJURY NOTED. CLEANSED SITE WELL, APPLIED 1 PEICE BLACK FOAM TO WOUND BED, SKIN PREP TO SURROUNDING TISSUE, THEN BENZOIN AROUND EDGES TO HELP KEEP DRAPE ADHERED. APPLIED DRAP WITH SUCTION PAD. LEAKAGE NOTED AT CREASE OF BUTTOCKS. APPLIED MORE DRAPE TO SECURE AROUND THE EDGES, SEAL OBTAINED TO SUCTION.
--- NOTE | 2019-08-07 05:00 | NUR ---
SHIFT SUMMARY: 63 Y/O MALE WITH CERBRAL PALSY ADMITTED FOR SACRAL DECUB. VS HAVE REMAINED STABLE. BOLUS TUBE FEEDING VIA PEG TUBE COMPLETED, PATIENT TOLERATED WELL. MEDS WERE ADMINISTERED VIA APPLESAUCE, HE SWALLOWED WITH NO PROBLEMS. CATHETER LEAKAGE NOTED EVEN AFTER FLUSH, NO URINE GOING INTO BAG. CALLED MD GOT ORDER TO CHANGE CATHETER. NEW CATH PLACED, NOTICED CATH IS POSITIONAL WITH SOME BACK FLOW TO THE BLADDER CAUSING LEAKAGE BUT NOT MUCH PRIOR. WOUND VAC CHANGED DUE TO SEAL BRAKEAGE FROM BM. NEW ONE APPLIED WITH SEAL OBTAINED, SEE NOTES FOR DETAILS ON WOUND. ANTIBOTIC GIVEN VIA IV. SL AFTERWARDS. NO OTHER CHANGES TO NOTE THIS SHIFT. WILL REPORT TO DAY SHIFT.
--- NOTE | 2019-08-07 13:30 | NUR ---
pt. is doing fine in bed resting offered prayers and blessings.
--- NOTE | 2019-08-07 18:54 | NUR ---
END OF SHIFT SUMMARY: PATIENT DENIED PAIN THROUGHOUT SHIFT. PATIENT DISPLAYED SIGNS OF PAIN WITH REPOSITION THAT RESOLVED WITH COMPLETION. PATIENT TOLERATED BOLUS FEEDINGS WELL. RESIDUALS REMAINED AT 0ML FOR ENTIRE SHIFT. PATIENT RECEIVED 240 ML/FEEDING AT BREAKFAST AND DINNER FEEDING AND 360ML/FEEDING AT LUNCH PER GOAL SET BY PANTOGRAPH II ENGRAVER ORDERS. ABDOMEN REMAINED SOFT AND NON-TENDER THROUGHOUT SHIFT. PATIENT HAD MULTIPLE, SOFT, FORMED BOWEL MOVEMENTS. PATIENT ABLE TO NOTIFY STAFF WHEN HE NEED TO HAVE A MOVEMENT OR WHEN ONE HAD STARTED. PATIENT DOES NOT APPRECIATE HAVING HIS HOB GREATER THAN 30 DEGREES POST BOLUS. PROVIDED EDUCATION TO FAMILY AND CORRECTION STAFF ABOUT MAINTAINING THIS ELEVATION POST BOLUS. WOUND VAC REMAINED INTACT THROUGHOUT SHIFT. PATIENT CONTINUED TO HAVE SOME LEAKAGE AROUND SUPRA-PUBIC CATHETER. REPLACED ABSORBANT PADS MULTIPLE TIMES. SKIN REMAINS INTACT AND FREE FROM IRRITATION IN THE PUBIC REGION. CATHETER FREE FLOWING WITHOUT NOTABLE SEDIMENT.
--- NOTE | 2019-08-07 19:35 | NUR ---
PATIENT RESTING IN ROOM, WATCHING TV. ASSISTED THE OTHER NURSE IN ATTENDS CHANGE. BM NOTED, WOUND VAC DRAPE STARTED TO LIFT; CAUSING LEAKAGE. APPLIED DRAPE OVER IT TO SEAL. SEAL ACHEIVED. CATHETER PATENT AND DRAINING, LEAKAGE STILL NOTED AROUND THE OSTOMY SITE. WILL MONITOR THROUGHOUT THE NIGHT, DRESSING DRY AT THIS TIME. LUNG SOUNDS CLEAR, HR REGULAR. NO NEEDS NOTED AT THIS TIME.
--- NOTE | 2019-08-08 06:10 | NUR ---
SHIFT SUMMARY: 63 Y/O MALE WITH CERBRAL PALSY ADMITTED FOR SACRAL DECUB. VS STABLE THIS SHIFT WITH ONE BP IN THE 90'S WHICH IS HIS NORM. CATHETER CARE WAS GIVEN, IT STILL LEAKS BUT NOT MUCH NIGHT PRIOR. ONLY NEEDED TO CHANGE THE PERIPAD OVE THE SUPERPUBIC ONCE THIS SHIFT. TUBE FEED BOLUS ADMINISTERED WITH NO PROBLEMS RESIDUAL WAS O. IV ANTIBOTICS ADMINISTERED THEN HE WAS SL. WOUND VAC REMAINED INTACT AND DRAINING SS FLUIDS. BS REMAIN IN THE HIGH 100'S. NO OTHER ACUTE CHANGES THIS SHIFT WILL REPORT TO DAY SHIFT.
[2019-08-08] MEDS ORDERED: ACET325 PO (11:36)
--- NOTE | 2019-08-08 13:12 | NUR ---
Pt. is doing well ,in bed and talking to family members in room on visit ,offered prayers.
--- NOTE | 2019-08-08 14:52 | NUR ---
PT DISCHARGED TO HOME AT [facility]. PT TRANSPORTED VIA AMBULANCE ON A GURNEY. CARE TAKERS IN ROOM THROUGHOUT THIS SHIFT PRIOR TO DISCHARGE. PT BEDRIDDEN AT BASELINE. PT'S WOUND VAC CHANGED JUST BEFORE DISCHARGE. PT ALERT UPON DISCHARGE.
== END 2019-08-08 14:27 ==
LOC: ER 11:20 → MEDS 13:15
PROVIDERS: Emergency Medicine; Family Medicine; Pharmacist; Surgery; ADMIT Family Medicine
PROC: 0DH63UZ Insertion of Feeding Device into Stomach, Percutaneous Approach (ICD-10-PCS; principal; 2019-08-02 12:00)
DX: E43 Unspecified severe protein-calorie malnutrition (principal); L89.154 Pressure ulcer of sacral region, stage 4; F32.9 Major depressive disorder, single episode, unspecified; G80.9 Cerebral palsy, unspecified; R62.50 Unspecified lack of expected normal physiological development in childhood; E11.9 Type 2 diabetes mellitus without complications; E86.0 Dehydration; E86.1 Hypovolemia; N31.9 Neuromuscular dysfunction of bladder, unspecified; Z79.82 Long term (current) use of aspirin; Z74.01 Bed confinement status; Z79.4 Long term (current) use of insulin; Z79.899 Other long term (current) drug therapy; Z96.0 Presence of urogenital implants; Z68.1 Body mass index [BMI] 19.9 or less, adult
CPT/HCPCS: 36415; 71045; 80048; 80053; 80202; 82947; 83605; 83735; 84100; 85025; 87040; 93005; 93010; 96361; 96365; 96366; 96367; 96372; 99285-25; C1769; G0378; J0696; J1650; J2704; J3370; J7030; J7120

== ENCOUNTER 2019-08-21 10:29 | Day surgery (SDC) | payer OTHER ==
[~2019-08-21 10:29] MED LIST changes: +PERIDEX15 ML MM
[2019-08-21] MEDS ORDERED: LEVFLO500 PO (15:51)
== END 2019-08-21 23:01 | disposition home or self-care (01) ==
LOC: WOUND 10:29
DX: L89.159 Pressure ulcer of sacral region, unspecified stage (principal); E46 Unspecified protein-calorie malnutrition; Z88.0 Allergy status to penicillin; Z88.1 Allergy status to other antibiotic agents; Z88.8 Allergy status to other drugs, medicaments and biological substances; Z79.82 Long term (current) use of aspirin; Z79.899 Other long term (current) drug therapy
CPT/HCPCS: 87071; 87075; 87205; 88305; J2704

== ENCOUNTER 2019-08-21 11:52 | Emergency (ER) | payer OTHER ==
[~2019-08-21] VITALS: Ht 165.1 cm; Wt 40.8 kg
[2019-08-21 13:41] LABS: BASOPHILS ABSOLUTE AUTO 0.05 K/mm3 (0.00-0.23); BASOPHILS PERCENT AUTO 1 % (0-2); EOSINOPHILS ABSOLUTE AUTO 0.14 K/mm3 (0.00-0.68); EOSINOPHILS PERCENT AUTO 2 % (0-6); Hematocrit 30.6 % (37.0-53.0); Hemoglobin 9.8 g/dL (13.5-17.5); IMMATURE GRAN ABSOLUTE AUTO 0.05 K/mm3 (0.00-0.10); IMMATURE GRAN PERCENT AUTO 1 % (0-1); LYMPHOCYTES PERCENT AUTO 20 % (21-46); MONOCYTES ABSOLUTE AUTO 0.68 K/mm3 (0.16-1.47); MONOCYTES PERCENT AUTO 9 % (4-13); Mean Corpuscular HGB 28.9 pg (26.0-34.0); Mean Corpuscular Volume 90 fL (80-100); Mean Platelet Volume 10.8 fL (9.1-12.4); NEUTROPHILS ABSOLUTE AUTO 5.09 K/mm3 (1.96-9.15); NEUTROPHILS PERCENT AUTO 68 % (41-73); Platelet Count 299 K/mm3 (150-400); RDW Coefficient Variation 15.8 % (11.7-14.2); RDW Standard Deviation 52.3 fL (35.1-46.3); Red Blood Cell Count 3.39 M/mm3 (4.30-5.90); White Blood Cell Count 7.51 K/mm3 (4.00-11.30)
[2019-08-21 14:03] LABS: Anion Gap 6 mmol/L (6-16); Blood Urea Nitrogen 18 mg/dL (8-24); Bun/Creatinine Ratio 57.3 (12.0-20.0); CO2, Blood 31 mmol/L (21-32); Calcium, Blood 8.5 mg/dL (8.5-10.1); Chloride, Blood 91 mmol/L (98-108); Creatinine, Blood 0.31 mg/dL (0.60-1.20); Glomerular Filtration Rate >60 (60-); Glucose, Blood 242 mg/dL (70-99); Potassium, Blood 4.6 mmol/L (3.5-5.5); Sodium, Blood 128 mmol/L (136-145)
[2019-08-21 14:06] LABS: Source, Urine Catheter
[2019-08-21 14:11] LABS: Appearance, Urine Hazy (Clear); Bilirubin, Urine Neg (Neg); Blood, Urine 1+ (Neg); Color, Urine Yellow (P-Yellow); Glucose Qualitative, Urine 3+ (Neg); Ketones, Urine Neg (Neg); Leukocyte Esterase, Urine 3+ (Neg); Nitrite, Urine Pos (Neg); Protein, Urine 1+ (Neg); Urobilinogen, Urine NORM (Normal)
[2019-08-21 14:22] LABS: Red Blood Cells, Urine 25-50 /hpf (0-2); White Blood Cells, Urine 25-50 /hpf (0-5)
[2019-08-21 14:23] LABS: Bacteria Many /hpf; Squamous Epithelial Cells Not Seen /hpf (Few); Yeast/Fungi Urine Many /hpf
[2019-08-21] MEDS ORDERED: LEVFLO500 PO (15:51)
== END 2019-08-21 18:27 | disposition home or self-care (01) ==
LOC: ER 11:52
PROVIDERS: Emergency Medicine
DX: L89.154 Pressure ulcer of sacral region, stage 4 (principal); N39.0 Urinary tract infection, site not specified; G80.9 Cerebral palsy, unspecified; E43 Unspecified severe protein-calorie malnutrition; F32.9 Major depressive disorder, single episode, unspecified; E11.9 Type 2 diabetes mellitus without complications; Z68.1 Body mass index [BMI] 19.9 or less, adult; Z88.1 Allergy status to other antibiotic agents; Z88.0 Allergy status to penicillin; Z88.8 Allergy status to other drugs, medicaments and biological substances; Z79.899 Other long term (current) drug therapy; Z79.82 Long term (current) use of aspirin
CPT/HCPCS: 36415; 80048; 81001; 83605; 85025; 87040; 87086; 96361; 96365; 96375; 99283-25; J1956; J3370; J7030

== ENCOUNTER 2019-08-26 11:46 | Emergency (ER) | payer OTHER ==
[~2019-08-26] VITALS: Ht 177.8 cm; Wt 54.4 kg
[2019-08-26] MEDS ORDERED: DOCU100 PT (12:15)
[2019-08-26] MEDS ORDERED: OXYB5 PT (12:17)
[2019-08-26] MEDS ORDERED: Gentak3.5 GM TOP (12:19)
[2019-08-26 13:27] LABS: BASOPHILS ABSOLUTE AUTO 0.04 K/mm3 (0.00-0.23); BASOPHILS PERCENT AUTO 1 % (0-2); EOSINOPHILS PERCENT AUTO 1 % (0-6); Hematocrit 29.4 % (37.0-53.0); Hemoglobin 9.8 g/dL (13.5-17.5); IMMATURE GRAN ABSOLUTE AUTO 0.08 K/mm3 (0.00-0.10); IMMATURE GRAN PERCENT AUTO 1 % (0-1); LYMPHOCYTES ABSOLUTE AUTO 1.49 K/mm3 (0.84-5.20); LYMPHOCYTES PERCENT AUTO 18 % (21-46); MONOCYTES PERCENT AUTO 7 % (4-13); Mean Corpuscular HGB 28.4 pg (26.0-34.0); Mean Corpuscular HGB Conc 33.3 g/dL (31.5-36.5); NEUTROPHILS ABSOLUTE AUTO 6.08 K/mm3 (1.96-9.15); NEUTROPHILS PERCENT AUTO 72 % (41-73); RDW Coefficient Variation 14.8 % (11.7-14.2); RDW Standard Deviation 46.1 fL (35.1-46.3); Red Blood Cell Count 3.45 M/mm3 (4.30-5.90); White Blood Cell Count 8.39 K/mm3 (4.00-11.30)
[2019-08-26 13:28] LABS: Alanine Aminotransfer (ALT/SGP 16 U/L (12-78); Albumin, Blood 2.2 g/dL (3.4-5.0); Albumin/Globulin Ratio 0.5 (0.8-1.8); Alk Phos 92 U/L (50-136); Anion Gap 6 mmol/L (6-16); Aspartate Aminotrans (AST/SGOT 21 U/L (12-37); Bilirubin, Total 0.2 mg/dL (0.1-1.0); Blood Urea Nitrogen 15 mg/dL (8-24); Bun/Creatinine Ratio 71.4 (12.0-20.0); CO2, Blood 30 mmol/L (21-32); Calcium, Blood 8.7 mg/dL (8.5-10.1); Chloride, Blood 90 mmol/L (98-108); Creatinine, Blood 0.21 mg/dL (0.60-1.20); Globulin, Blood 4.2 g/dL (2.2-4.0); Glomerular Filtration Rate >60 (60-); Glucose, Blood 172 mg/dL (70-99); Mean Corpuscular Volume 85 fL (80-100); Mean Platelet Volume 10.9 fL (9.1-12.4); Platelet Count 324 K/mm3 (150-400); Potassium, Blood 4.6 mmol/L (3.5-5.5); Sodium, Blood 126 mmol/L (136-145); Total Protein, Blood 6.4 g/dL (6.4-8.2)
[2019-08-26 13:43] LABS: Source, Urine Clean Catch
[2019-08-26 13:53] LABS: Bilirubin, Urine Neg (Neg); Blood, Urine 1+ (Neg); Glucose Qualitative, Urine Neg (Neg); Ketones, Urine Neg (Neg); Leukocyte Esterase, Urine 3+ (Neg); Nitrite, Urine Pos (Neg); Protein, Urine Neg (Neg); Urobilinogen, Urine NORM (Normal)
[2019-08-26 14:01] LABS: Appearance, Urine Hazy (Clear); Color, Urine Yellow (P-Yellow)
[2019-08-26 14:02] LABS: White Blood Cells, Urine TNTC /hpf (0-5); Yeast/Fungi Urine Few /hpf
[2019-08-26 14:03] LABS: Bacteria Few /hpf; Squamous Epithelial Cells Not Seen /hpf (Few)
[2019-08-26] MEDS ORDERED: Bactrim Ds Tab1 EACH PT (15:07)
== END 2019-08-26 18:32 | disposition home or self-care (01) ==
LOC: ER 11:46
PROVIDERS: Emergency Medicine
DX: E87.1 Hypo-osmolality and hyponatremia (principal); E86.0 Dehydration; N39.0 Urinary tract infection, site not specified; E11.9 Type 2 diabetes mellitus without complications; F32.9 Major depressive disorder, single episode, unspecified; Z88.1 Allergy status to other antibiotic agents; Z88.0 Allergy status to penicillin; Z88.8 Allergy status to other drugs, medicaments and biological substances; Z79.899 Other long term (current) drug therapy; Z79.82 Long term (current) use of aspirin
CPT/HCPCS: 36415; 80053; 81001; 85025; 87077; 87086; 87106; 87186; 96360; 99284-25; A9270-GY; J7030

== ENCOUNTER 2019-08-27 10:13 | Day surgery (SDC) | payer OTHER ==
[~2019-08-27 10:13] MED LIST changes: +Bactrim Ds Tab1 EACH PT; +DOCU100 PT; +OXYB5 PT
== END 2019-08-27 22:56 | disposition home or self-care (01) ==
LOC: WOUND 10:13
DX: I96 Gangrene, not elsewhere classified (principal); L89.154 Pressure ulcer of sacral region, stage 4; E11.52 Type 2 diabetes mellitus with diabetic peripheral angiopathy with gangrene; G82.50 Quadriplegia, unspecified; E11.40 Type 2 diabetes mellitus with diabetic neuropathy, unspecified; E11.69 Type 2 diabetes mellitus with other specified complication; M86.8X9 Other osteomyelitis, unspecified sites; I10 Essential (primary) hypertension; I25.10 Atherosclerotic heart disease of native coronary artery without angina pectoris; E07.9 Disorder of thyroid, unspecified; Z99.3 Dependence on wheelchair; Z74.09 Other reduced mobility; Z88.0 Allergy status to penicillin; Z88.1 Allergy status to other antibiotic agents; Z88.8 Allergy status to other drugs, medicaments and biological substances; Z79.82 Long term (current) use of aspirin; Z79.51 Long term (current) use of inhaled steroids; Z79.2 Long term (current) use of antibiotics; Z79.899 Other long term (current) drug therapy

== ENCOUNTER 2019-09-03 10:23 | Day surgery (SDC) | payer OTHER | END 2019-09-03 23:30 | disposition home or self-care (01) | LOC: WOUND 10:23 | DX: I96 Gangrene, not elsewhere classified (principal); L89.154 Pressure ulcer of sacral region, stage 4; E11.52 Type 2 diabetes mellitus with diabetic peripheral angiopathy with gangrene; E11.40 Type 2 diabetes mellitus with diabetic neuropathy, unspecified; E11.69 Type 2 diabetes mellitus with other specified complication; M86.8X9 Other osteomyelitis, unspecified sites; G82.50 Quadriplegia, unspecified; I10 Essential (primary) hypertension; I25.10 Atherosclerotic heart disease of native coronary artery without angina pectoris; E07.9 Disorder of thyroid, unspecified; Z88.0 Allergy status to penicillin; Z99.3 Dependence on wheelchair; Z74.09 Other reduced mobility; Z88.1 Allergy status to other antibiotic agents; Z88.8 Allergy status to other drugs, medicaments and biological substances; Z79.82 Long term (current) use of aspirin; Z79.899 Other long term (current) drug therapy; Z79.51 Long term (current) use of inhaled steroids ==

== ENCOUNTER 2019-09-06 14:09 | Emergency (ER) | payer OTHER ==
[~2019-09-06] VITALS: Ht 162.6 cm; Wt 63.5 kg
[2019-09-07] MEDS ORDERED: OMEPRAZOLE20 MG PT (21:07)
[2019-09-07] MEDS ORDERED: SENNA LAXATIVE8.6 MG PO (21:10)
== END 2019-09-06 16:10 | disposition home or self-care (01) ==
LOC: ER 14:09
DX: L89.154 Pressure ulcer of sacral region, stage 4 (principal); F32.9 Major depressive disorder, single episode, unspecified; E11.9 Type 2 diabetes mellitus without complications; Z88.8 Allergy status to other drugs, medicaments and biological substances; Z88.0 Allergy status to penicillin; Z79.82 Long term (current) use of aspirin; Z79.899 Other long term (current) drug therapy
CPT/HCPCS: 99283

== ENCOUNTER 2019-09-07 04:52 | Inpatient (IN) | payer OTHER ==
[~2019-09-07] VITALS: Ht 172.7 cm; Wt 70.3 kg
[2019-09-07 05:20] LABS: BASOPHILS ABSOLUTE AUTO 0.03 K/mm3 (0.00-0.23); BASOPHILS PERCENT AUTO 1 % (0-2); EOSINOPHILS ABSOLUTE AUTO 0.11 K/mm3 (0.00-0.68); EOSINOPHILS PERCENT AUTO 2 % (0-6); Hematocrit 27.6 % (37.0-53.0); IMMATURE GRAN ABSOLUTE AUTO 0.05 K/mm3 (0.00-0.10); IMMATURE GRAN PERCENT AUTO 1 % (0-1); LYMPHOCYTES ABSOLUTE AUTO 2.01 K/mm3 (0.84-5.20); LYMPHOCYTES PERCENT AUTO 31 % (21-46); MONOCYTES ABSOLUTE AUTO 0.46 K/mm3 (0.16-1.47); MONOCYTES PERCENT AUTO 7 % (4-13); Mean Corpuscular HGB 28.2 pg (26.0-34.0); Mean Corpuscular HGB Conc 32.6 g/dL (31.5-36.5); Mean Corpuscular Volume 87 fL (80-100); Mean Platelet Volume 10.5 fL (9.1-12.4); NEUTROPHILS ABSOLUTE AUTO 3.84 K/mm3 (1.96-9.15); NEUTROPHILS PERCENT AUTO 59 % (41-73); Platelet Count 262 K/mm3 (150-400); RDW Coefficient Variation 14.5 % (11.7-14.2); RDW Standard Deviation 46.2 fL (35.1-46.3); Red Blood Cell Count 3.19 M/mm3 (4.30-5.90)
[2019-09-07 05:39] LABS: Alanine Aminotransfer (ALT/SGP 15 U/L (12-78); Albumin, Blood 2.2 g/dL (3.4-5.0); Albumin/Globulin Ratio 0.6 (0.8-1.8); Alk Phos 93 U/L (50-136); Anion Gap 5 mmol/L (6-16); Aspartate Aminotrans (AST/SGOT 17 U/L (12-37); Bilirubin, Total 0.3 mg/dL (0.1-1.0); Blood Urea Nitrogen 16 mg/dL (8-24); Bun/Creatinine Ratio 58.6 (12.0-20.0); CO2, Blood 30 mmol/L (21-32); Calcium, Blood 8.4 mg/dL (8.5-10.1); Chloride, Blood 90 mmol/L (98-108); Creatinine, Blood 0.27 mg/dL (0.60-1.20); Glomerular Filtration Rate >60 (60-); Glucose, Blood 140 mg/dL (70-99); Potassium, Blood 4.6 mmol/L (3.5-5.5); Sodium, Blood 125 mmol/L (136-145); Total Protein, Blood 6.2 g/dL (6.4-8.2)
[2019-09-07 06:10] LABS: Source, Urine Clean Catch
[2019-09-07 06:18] LABS: Bilirubin, Urine Neg (Neg); Blood, Urine Neg (Neg); Glucose Qualitative, Urine Neg (Neg); Ketones, Urine Neg (Neg); Leukocyte Esterase, Urine 3+ (Neg); Nitrite, Urine Pos (Neg); Protein, Urine Neg (Neg); Urobilinogen, Urine NORM (Normal)
[2019-09-07 06:19] LABS: Appearance, Urine Hazy (Clear); Color, Urine Yellow (P-Yellow)
[2019-09-07 06:23] LABS: Amorphous Mod (0-Heavy); Bacteria Mod /hpf; Red Blood Cells, Urine Not Seen /hpf (0-2); Squamous Epithelial Cells Rare /hpf (Few); Triple Phosphate Crystals Mod /hpf
--- NOTE | 2019-09-07 18:28 | NUR ---
SHIFT NOTE PT SENT TO ER TODAY FROM [facility] FOR HYPOTENSION, AND DECREASED RESPONSIVENESS. PT WITH SLIGHT DECREASE IN REPOSSIVENESS ON ARRIVAL BUT DID EXHIBIT ALERTNESS THAT WAS NEAR HIS BASELINE AFTER BEING SETTLED IN ROOM. PT WITH HX OF CEREBRAL PALSY AND HAS BEEN W/C BOUND X10 YEARS. G-TUBE IS PATENT ON ARRIVAL, SUPRAPUBIC DRAINGING TO GRAVITY
--- NOTE | 2019-09-07 20:58 | NUR ---
visitor left at 1999, no one in room, provided care, depends was filled, cleaned pt, attached statlock to protect cath from pulling, adjusted pt so stated he was able to see tv to his satisfaction, resting comfortably, feeding stopped after 230 flush, will continue to asses and treat as appropriate
[2019-09-07] MEDS ORDERED: OMEPRAZOLE20 MG PT (21:07)
[2019-09-07] MEDS ORDERED: SENNA LAXATIVE8.6 MG PO (21:10)
[2019-09-08 03:42] LABS: BASOPHILS ABSOLUTE AUTO 0.06 K/mm3 (0.00-0.23); BASOPHILS PERCENT AUTO 1 % (0-2); EOSINOPHILS ABSOLUTE AUTO 0.14 K/mm3 (0.00-0.68); EOSINOPHILS PERCENT AUTO 2 % (0-6); Hematocrit 28.7 % (37.0-53.0); Hemoglobin 9.1 g/dL (13.5-17.5); IMMATURE GRAN ABSOLUTE AUTO 0.06 K/mm3 (0.00-0.10); IMMATURE GRAN PERCENT AUTO 1 % (0-1); LYMPHOCYTES ABSOLUTE AUTO 1.37 K/mm3 (0.84-5.20); LYMPHOCYTES PERCENT AUTO 22 % (21-46); MONOCYTES PERCENT AUTO 8 % (4-13); Mean Corpuscular HGB 27.9 pg (26.0-34.0); Mean Corpuscular HGB Conc 31.7 g/dL (31.5-36.5); Mean Corpuscular Volume 88 fL (80-100); Mean Platelet Volume 10.7 fL (9.1-12.4); NEUTROPHILS ABSOLUTE AUTO 4.25 K/mm3 (1.96-9.15); NEUTROPHILS PERCENT AUTO 67 % (41-73); Platelet Count 240 K/mm3 (150-400); RDW Coefficient Variation 14.5 % (11.7-14.2); RDW Standard Deviation 46.8 fL (35.1-46.3); Red Blood Cell Count 3.26 M/mm3 (4.30-5.90); White Blood Cell Count 6.38 K/mm3 (4.00-11.30)
[2019-09-08 03:58] LABS: Magnesium, Blood 1.6 mg/dL (1.6-2.4)
[2019-09-08 04:16] LABS: Anion Gap 7 mmol/L (6-16); Blood Urea Nitrogen 15 mg/dL (8-24); Bun/Creatinine Ratio 66.7 (12.0-20.0); CO2, Blood 28 mmol/L (21-32); Calcium, Blood 7.9 mg/dL (8.5-10.1); Chloride, Blood 101 mmol/L (98-108); Creatinine, Blood 0.23 mg/dL (0.60-1.20); Glomerular Filtration Rate >60 (60-); Glucose, Blood 134 mg/dL (70-99); Phosphorus, Blood 3.1 mg/dL (2.5-4.9); Potassium, Blood 4.2 mmol/L (3.5-5.5)
[2019-09-08 04:17] LABS: Sodium, Blood 136 mmol/L (136-145)
--- NOTE | 2019-09-08 07:23 | NUR ---
tube feeding completed and line flushed, medicated via tube with no negative results, did not enjoy being moved so minimized modifications to ensure pressure relieved from wound on coccyx, speech remain slured but understandable, bed side report provided to staff and pt.
--- NOTE | 2019-09-08 12:16 | NUR ---
PT WAS RECEIVED FROM PCU 10 THIS MORNING AND IS ALERT AND APPEARS TO BE ORIENTED AT HIS BASELINE NOTED FROM PREVIOUS HOSPITAL ADMISSIONS. HE IS ABLE TO NOD YES AND NO TO ANSWER QUESTIONS. PT WAS ASSISTED TO HIS NEW ROOM, HIS BRIEF WAS CHANGED WITH X 2 ASSIST SINCE PT HAD AN INC BM. DRESSING TO COCCYX WAS ALSO SATURATED AND PER DR MARIE WAS CHANGED WITH A NEW DRY FOAM DRESSING. MORNING MEDS WERE GIVEN LATE, PER REPORT THEY WERE NOT GIVEN BEFORE TRANSFER FROM CHILD SUPPORT SPECIALIST, MD AND CHARGE NURSE WERE NOTIFIED. PT IS RESTING COMFORTABLY IN BED WITH FREQUENT RE-POSITIONING AND NURSE ROUNDING.
--- NOTE | 2019-09-08 16:12 | NUR ---
SHIFT SUMMARY: PT HAS BEEN A/O AT BASELINE SINCE HIS TRANSFER TO THE UNIT. HE HAS HAD CARE GIVERS FROM [facility] ON AND OFF AT THE BEDSIDE. PT IS COMPLIANT WITH ALL HIS CARE AND TUBE FEEDINGS HAVE INFUSED ORDERED WITH NO RESIDUAL. PT CONTINUES WITH THE PRESSURE ULCER TO HIS COCCYX NOTED IN HIS ASSESSMENT. PER DR CYNTHIA PRESCOTT WILL SEE THE PT ON MONDAY TO ASSESS THE WOUND. PT IS TURNED AND RE-POSITIONED Q 2 TO OFFLOAD PRESSURE. PT REMAINS INC OF STOOL AND HAS SUPRAPUBIC LEON IN PLACE. PT IS NOT ABLE TO MAKE HIS NEEDS KNOWN UNLESS ASKED AND REQUIRES FREQUENT NURSE ROUNDING.
--- NOTE | 2019-09-09 04:37 | NUR ---
SHIFT SUMMARY PT HAS RESTED OFF AND ON THIS SHIFT. PT HAS HAD TWO CAREGIVERS IN THE ROOM WITH HIM THIS SHIFT. THE FIRST CAREGIVER WAS IN THE ROOM WHEN I CAME ON TO SHIFT AND LEFT SHORTLY AFTER 1999. THE SECOND CAREGIVER CAME IN AROUND 2229, AND LEFT AFTER ABOUT HALF AN HOUR, SHE STATED THAT ANOTHER CAREGIVER WOULD COME IN TO SIT WITH FRANKT. THERE HAVE BEEN NO OTHER CAREGIVERS IN THE ROOM THIS SHIFT SINCE THAT TIME. PT MEDICATED FOR PAIN THIS SHIFT PER HIS REQUEST. PT WILL MAKE HIS NEEDS KNOW IF GIVEN TIME. HE USES ONE WORD AT A TIME, AND NODS "YES" OR "NO". PT TOLEATED HIS TUBE FEEDS THIS SHIFT AND DID NOT HAVE ANY RESIDUAL. PT REPOSITIONED Q2HR. PT HAD A BM THIS SHIFT AND DRG ON COCCYX CHANGED, AND WOUND CLEANED. VITALS ARE STABLE. IVF INFUSING ORDERED. NO ACUTE CHANGES TO REPORT OVERNIGHT. BED IN LOWEST POSITION, CALL LIGHT WITHIN REACH. WILL CONTINUE TO MONITOR AND REPORT TO ONCOMING RN
[2019-09-09 05:05] LABS: Magnesium, Blood 1.6 mg/dL (1.6-2.4); Phosphorus, Blood 2.6 mg/dL (2.5-4.9)
--- NOTE | 2019-09-09 17:00 | NUR ---
PT REFUSING 1600 PEG TUBE FEEDING. DENIED OFFER FOR DRINK, REPEATEDLY SHOOK HEAD NO WHEN ASKED IF FEEDING COULD BE PERFORMED.
--- NOTE | 2019-09-09 17:03 | NUR ---
Inital spiritual care note: Mr. Rodriguez appears non-verbal. He nodded 'yes' to prayer. He is a life-long [place]. He feels well loved and cared-for by staff at [facility]. Care-senior strategy analyst at bedside. He appears frail. Prayer for healing provided at bedside. Father Elan will be following pt as his schedule permits. I will remain available.
--- NOTE | 2019-09-09 17:19 | NUR ---
SUMMARY NO ACUTE CHANGES T/O SHIFT. PT REFUSED TO BE REPOSITIONED ONCE DURING SHIFT AND REFUSED HIS 1600 GRAVITY FEED. HAS DENIED PAIN. IV INFUSING W/O DIFFICULTY. CAREGIVERS HAVE BEEN TO BEDSIDE FOR BRIEF AMOUNTS OF TIME DURING SHIFT.
--- NOTE | 2019-09-09 17:51 | NUR ---
CHANGED DRESSING TO COCCYX CLEANED WOUND. REPOSITIONED PT AND FLOATED HEELS. CHANGED ATTENDS. PLACED NEW DRAIN SPONGE TO SUPRAPUBIC CATH INSERTION SITE. CAREGIVER AT BEDSIDE.
--- NOTE | 2019-09-10 07:29 | NUR ---
SHIFT SUMMARY PATIENT SLEPT MOST OF THE NIGHT. DRESSING ON COCCYX CHANGED, CLEANED WITH WOUND TAX ANALYST AND SACRAL MEPILEX DRESSING APPLIED. PATIENT TOLERATED TUBE FEEDING WELL. IV IN RIGHT HAND PATENT AND INFUSING WITH NORMAL SALINE AT 125 ML/HR. IV IN LEFT HAND PATENT AND FLUSHED. BED IN LOWEST POSITION. CALL LIGHT WITHIN REACH. REPORT GIVEN TO ONCOMING RN.
[2019-09-10 08:50] LABS: BASOPHILS ABSOLUTE AUTO 0.04 K/mm3 (0.00-0.23); BASOPHILS PERCENT AUTO 1 % (0-2); EOSINOPHILS ABSOLUTE AUTO 0.13 K/mm3 (0.00-0.68); EOSINOPHILS PERCENT AUTO 3 % (0-6); Hematocrit 28.6 % (37.0-53.0); Hemoglobin 8.9 g/dL (13.5-17.5); IMMATURE GRAN ABSOLUTE AUTO 0.03 K/mm3 (0.00-0.10); IMMATURE GRAN PERCENT AUTO 1 % (0-1); LYMPHOCYTES ABSOLUTE AUTO 1.37 K/mm3 (0.84-5.20); LYMPHOCYTES PERCENT AUTO 28 % (21-46); MONOCYTES ABSOLUTE AUTO 0.34 K/mm3 (0.16-1.47); MONOCYTES PERCENT AUTO 7 % (4-13); Mean Corpuscular HGB 28.1 pg (26.0-34.0); Mean Corpuscular HGB Conc 31.1 g/dL (31.5-36.5); Mean Corpuscular Volume 90 fL (80-100); Mean Platelet Volume 10.6 fL (9.1-12.4); NEUTROPHILS ABSOLUTE AUTO 2.94 K/mm3 (1.96-9.15); NEUTROPHILS PERCENT AUTO 61 % (41-73); Platelet Count 215 K/mm3 (150-400); RDW Coefficient Variation 14.6 % (11.7-14.2); Red Blood Cell Count 3.17 M/mm3 (4.30-5.90); White Blood Cell Count 4.85 K/mm3 (4.00-11.30)
[2019-09-10 09:12] LABS: Anion Gap 5 mmol/L (6-16); Blood Urea Nitrogen 7 mg/dL (8-24); Bun/Creatinine Ratio 25.1 (12.0-20.0); CO2, Blood 26 mmol/L (21-32); Calcium, Blood 7.9 mg/dL (8.5-10.1); Chloride, Blood 107 mmol/L (98-108); Creatinine, Blood 0.28 mg/dL (0.60-1.20); Glomerular Filtration Rate >60 (60-); Glucose, Blood 109 mg/dL (70-99); Magnesium, Blood 1.7 mg/dL (1.6-2.4); Phosphorus, Blood 2.9 mg/dL (2.5-4.9); Potassium, Blood 3.8 mmol/L (3.5-5.5); Sodium, Blood 138 mmol/L (136-145)
--- NOTE | 2019-09-10 09:31 | NUR ---
0800 TUBE FEED PT DECLINED TO HAVE BOLUS TUBE FEEDING THIS MORNING.
--- NOTE | 2019-09-10 16:28 | NUR ---
Shift Summary A/O, able to answer "Yes" "No" questions. Medicated x 1 for pain this shift. Wound care provided. Pt did not allow 0800 gravity feed; however, did allow this Rn gravity feed @ 1200. No other acute changes, will continue to monitor.
[2019-09-11 05:45] LABS: Anion Gap 5 mmol/L (6-16); Blood Urea Nitrogen 7 mg/dL (8-24); Bun/Creatinine Ratio 27.1 (12.0-20.0); CO2, Blood 27 mmol/L (21-32); Calcium, Blood 7.8 mg/dL (8.5-10.1); Chloride, Blood 106 mmol/L (98-108); Creatinine, Blood 0.26 mg/dL (0.60-1.20); Glomerular Filtration Rate >60 (60-); Glucose, Blood 139 mg/dL (70-99); Sodium, Blood 138 mmol/L (136-145)
--- NOTE | 2019-09-11 06:01 | NUR ---
SHIFT SUMMARY PT IS A 64 Y/O MALE, ADMITTED FOR HYPOTENSION, UTI AND POSSIBLE SEPSIS. HX OF CEREBRAL PALSY FROM [facility] FROM THE HANDICAPPED. HE IS BEDBOUND AT BASELINE. PT HAS A SUPRAPUBIC CATHETER IN PLACE, PATENT AND DRAINING. PT'S ORIENTATION STATUS IS DIFFICULT TO ASCERTAIN DUE TO PT'S LIMITED COMMUNICATION SKILLS. NO S/S OR COMPLAINTS OF PAIN, NAUSEA OR SOB. VITAL SIGNS STABLE. NO ACUTE CHANGES IN PT CONDITION NOTED. PT SLEPT WELL THROUGH THE NIGHT. WILL CONTINUE TO MONITOR AND TREAT PER EMAR UNTIL HAND OFF TO DAY SHIFT RN.
--- NOTE | 2019-09-11 14:28 | NUR ---
[place] Pt complaining of pain. Notified jhony Wilson to increase current [place] to Q4H PRN for pain. Per Dr. Burleson, fluids to be d/c'd.
--- NOTE | 2019-09-11 17:27 | NUR ---
Shift Summary Patient has been compliant with bolus feedings; this has to be at patient's descretion as he is capable of making this clear. If patient declines, a later time should be agreed upon with patient to make this work. Wound care has been completed, care givers have been in and out. No residuals from feedings and pt tolerates them well. Medicated for pain x 2 and repositioned frequently t/o day and per patient request. No other changes. Will continue to monitor.
[2019-09-12 05:00] LABS: Anion Gap 5 mmol/L (6-16); Blood Urea Nitrogen 7 mg/dL (8-24); Bun/Creatinine Ratio 28.9 (12.0-20.0); CO2, Blood 28 mmol/L (21-32); Calcium, Blood 7.9 mg/dL (8.5-10.1); Chloride, Blood 100 mmol/L (98-108); Creatinine, Blood 0.24 mg/dL (0.60-1.20); Glomerular Filtration Rate >60 (60-); Glucose, Blood 113 mg/dL (70-99); Potassium, Blood 4.3 mmol/L (3.5-5.5); Sodium, Blood 133 mmol/L (136-145)
--- NOTE | 2019-09-12 06:44 | NUR ---
PATIENT WAS PLEASANT AND COOPERATIVE WITH CARE THIS SHIFT. HE IS EXPERIENCEING URGENCY AND FREQUENCY BUT NO REAL DISCOMFORT NOTED. VERY NICE FELLOW.
[2019-09-12] MEDS ORDERED: JUVEN PACKET1 EAC1 PT (12:45)
[2019-09-12] MEDS ORDERED: GLUCERNA 1.2 (12:47)
--- NOTE | 2019-09-12 13:06 | NUR ---
Met pt. in bed resting he is doing well and hopes to go home today encouraged pt. offered prayers for pt.
[2019-09-12] MEDS ORDERED: ACET500 PT (15:08)
[2019-09-12] MEDS ORDERED: PERCOCET 10-321 EACH PO (15:09)
--- NOTE | 2019-09-12 15:49 | NUR ---
DISCHARGE INSTRUCTIONS COMPLETED AND DISCUSSED WITH PTS CAREGIVER AND MEDICATION IRREGULARITIES CORRECTED PRIOR TO DISCHARGE. [facility] HERE TO PICK PT UP AT 1510. TO [facility] VIA W/C.
== END 2019-09-12 15:31 | disposition home health service (06) | DRG 698 ==
LOC: ER 04:52 → MEDS 07:10 → PCU 07:10 → MEDS 09-08 10:00 → ENPENDDIS 09-12 11:53 → MEDS 09-12 15:31
PROVIDERS: Emergency Medicine; Student in an Organized Health Care Education/Training Program; ADMIT Internal Medicine
DX: T83.510A Infection and inflammatory reaction due to cystostomy catheter, initial encounter (principal); L89.154 Pressure ulcer of sacral region, stage 4; G93.41 Metabolic encephalopathy; E43 Unspecified severe protein-calorie malnutrition; E87.1 Hypo-osmolality and hyponatremia; N39.0 Urinary tract infection, site not specified; G80.9 Cerebral palsy, unspecified; Z99.3 Dependence on wheelchair; I10 Essential (primary) hypertension; E78.5 Hyperlipidemia, unspecified; I73.9 Peripheral vascular disease, unspecified; Z79.82 Long term (current) use of aspirin; N31.9 Neuromuscular dysfunction of bladder, unspecified
CPT/HCPCS: 36415; 71045; 72193; 80048; 80053; 81001; 82947; 83605; 83735; 84100; 84145; 85025; 87040; 87077; 87086; 87186; 96361; 96365; 99285-25; J0696; J0713; J1650; J7030; Q9967

== ENCOUNTER 2019-09-17 10:22 | Day surgery (SDC) | payer OTHER ==
[~2019-09-17 10:22] MED LIST changes: +ACET500 PT; +GLUCERNA 1.2; +JUVEN PACKET1 EAC1 PT; +OMEPRAZOLE20 MG PT; +PERCOCET 10-321 EACH PO; +SENNA LAXATIVE8.6 MG PO
== END 2019-09-17 22:33 | disposition home or self-care (01) ==
LOC: WOUND 10:22
DX: I96 Gangrene, not elsewhere classified (principal); L89.154 Pressure ulcer of sacral region, stage 4; E11.52 Type 2 diabetes mellitus with diabetic peripheral angiopathy with gangrene; E11.40 Type 2 diabetes mellitus with diabetic neuropathy, unspecified; I10 Essential (primary) hypertension; I70.90 Unspecified atherosclerosis; E11.69 Type 2 diabetes mellitus with other specified complication; M86.8X9 Other osteomyelitis, unspecified sites; G82.50 Quadriplegia, unspecified; E07.9 Disorder of thyroid, unspecified; Z99.3 Dependence on wheelchair; Z74.09 Other reduced mobility; Z88.0 Allergy status to penicillin; Z88.1 Allergy status to other antibiotic agents; Z88.8 Allergy status to other drugs, medicaments and biological substances; Z79.82 Long term (current) use of aspirin; Z79.51 Long term (current) use of inhaled steroids; Z79.899 Other long term (current) drug therapy

== ENCOUNTER 2019-09-21 02:35 | Inpatient (IN) | payer OTHER ==
[~2019-09-21] VITALS: Ht 167.6 cm; Wt 46.6 kg
[2019-09-21 03:55] LABS: BASOPHILS ABSOLUTE AUTO 0.03 K/mm3 (0.00-0.23); BASOPHILS PERCENT AUTO 0 % (0-2); EOSINOPHILS ABSOLUTE AUTO 0.02 K/mm3 (0.00-0.68); EOSINOPHILS PERCENT AUTO 0 % (0-6); Hematocrit 35.8 % (37.0-53.0); Hemoglobin 11.7 g/dL (13.5-17.5); IMMATURE GRAN ABSOLUTE AUTO 0.04 K/mm3 (0.00-0.10); IMMATURE GRAN PERCENT AUTO 0 % (0-1); LYMPHOCYTES ABSOLUTE AUTO 0.62 K/mm3 (0.84-5.20); LYMPHOCYTES PERCENT AUTO 7 % (21-46); MONOCYTES PERCENT AUTO 4 % (4-13); Mean Corpuscular HGB 28.1 pg (26.0-34.0); Mean Corpuscular HGB Conc 32.7 g/dL (31.5-36.5); Mean Platelet Volume 11.1 fL (9.1-12.4); NEUTROPHILS PERCENT AUTO 88 % (41-73); Platelet Count 297 K/mm3 (150-400); RDW Coefficient Variation 15.6 % (11.7-14.2); RDW Standard Deviation 49.3 fL (35.1-46.3); Red Blood Cell Count 4.16 M/mm3 (4.30-5.90); White Blood Cell Count 9.11 K/mm3 (4.00-11.30)
[2019-09-21 03:58] LABS: Mean Corpuscular Volume 86 fL (80-100)
[2019-09-21 04:08] LABS: Alanine Aminotransfer (ALT/SGP 22 U/L (12-78); Albumin, Blood 2.5 g/dL (3.4-5.0); Albumin/Globulin Ratio 0.5 (0.8-1.8); Alk Phos 120 U/L (50-136); Anion Gap 9 mmol/L (6-16); Aspartate Aminotrans (AST/SGOT 17 U/L (12-37); Bilirubin, Total 0.3 mg/dL (0.1-1.0); Blood Urea Nitrogen 25 mg/dL (8-24); CO2, Blood 28 mmol/L (21-32); Calcium, Blood 8.6 mg/dL (8.5-10.1); Chloride, Blood 84 mmol/L (98-108); Creatinine, Blood 0.25 mg/dL (0.60-1.20); Globulin, Blood 4.6 g/dL (2.2-4.0); Glomerular Filtration Rate >60 (60-); Glucose, Blood 266 mg/dL (70-99); Potassium, Blood 4.2 mmol/L (3.5-5.5); Sodium, Blood 121 mmol/L (136-145); Total Protein, Blood 7.1 g/dL (6.4-8.2)
[2019-09-21 05:14] LABS: Influenza A Negative (NEGATIVE); Influenza B Negative (NEGATIVE)
[2019-09-21 05:23] LABS: Source, Urine Voided
[2019-09-21 05:25] LABS: Bilirubin, Urine Neg (Neg); Blood, Urine 2+ (Neg); Glucose Qualitative, Urine 4+ (Neg); Ketones, Urine Neg (Neg); Leukocyte Esterase, Urine 2+ (Neg); Nitrite, Urine Neg (Neg); Protein, Urine 2+ (Neg); Urobilinogen, Urine NORM (Normal)
[2019-09-21 05:33] LABS: Appearance, Urine Hazy (Clear); Color, Urine Yellow (P-Yellow)
[2019-09-21 05:35] LABS: Bacteria Mod /hpf; Squamous Epithelial Cells Not Seen /hpf (Few)
[2019-09-21 05:36] LABS: Amorphous Mod (0-Heavy); Renal Epithelial Few /hpf (0-Rare)
--- NOTE | 2019-09-21 12:27 | NUR ---
PATIENT BROUGHT UP FROM THE EMERGENCY DEPARTMENT THIS MORNING AROUND 0700. PATIENT ADMIT IS DONE, ADMISSION HISTORY DONE BY ANAID BRADFORD. PATIENT HAS BEEN CHANGED. HE DOES HAVE A PRESSURE ULCER ON HIS BOTTOM, HE WAS LAST DISCHARGED ON 09/12/19. PATIENT IS CURRENTLY VERBAL AND RESPONDS ONLY TO VERBAL STIMULI. NO ACUTE CONCERNS FROM THE PATIENT AT THIS TIME. AWAITING DIETITIAN CONSULT AND PATIENT DOES NOT WANT TO EAT LUNCH AT THIS TIME. PATIENT DID NOT GIVE CONSENT TO PHOTOGRAPH HIS WOUNDS AT THIS TIME. WILL TRY AGAIN WITH NEXT ATTENDS CHANGE.
[2019-09-21 16:01] LABS: Anion Gap 8 mmol/L (6-16); Blood Urea Nitrogen 18 mg/dL (8-24); Bun/Creatinine Ratio 66.9 (12.0-20.0); CO2, Blood 27 mmol/L (21-32); Calcium, Blood 8.2 mg/dL (8.5-10.1); Chloride, Blood 91 mmol/L (98-108); Creatinine, Blood 0.27 mg/dL (0.60-1.20); Glomerular Filtration Rate >60 (60-); Glucose, Blood 151 mg/dL (70-99); Potassium, Blood 4.1 mmol/L (3.5-5.5); Sodium, Blood 126 mmol/L (136-145)
--- NOTE | 2019-09-21 17:51 | NUR ---
SHIFT SUMMARY PATIENT IS PLEASANT, ALERT TO VERBAL STIMULI. NO ACUTE CONCERNS AT THIS TIME. PATIENT HAS REFUSED ALL FEEDINGS ENTERAL AND ORAL. HE DOES FEEL "FULL". HIS RESIDUAL IS ZERO. AT THIS TIME I BELIEVE THE PATIENT IS COMFORTABLE. I HAVE ASKED IF HE FELT LIKE HE NEEDED SOMETHING FOR PAIN. HE CURRENTLY DENIES THIS. THE PATIENT HAS BEEN PLEASANT ALL DAY. HE DID HAVE A BED BATH. MEDICATION RECONCILIATION IS DONE. PATIENT HAS SPENT MOST OF HIS DAY SLEEPING TODAY.
--- NOTE | 2019-09-22 04:11 | NUR ---
ALERT AND ORIENTED BUT NONVERBAL. REPSOITIONED INTERMITTENTLY FOR COMFORT AND SKIN MAINTENANCE. INCONT OF BOWEL EARLIER, DRESSING OF COCCYX CHANGED. NOTED DEEP DECUBITUS THAT NEEDED REPACKING DUE TO INCONT. REPACKED WITH STERILE WET TO DRY GAUZE AND COVERED WITH A MEPILEX FOR PROTECTION. MED TELE CONTINUES, WAS SINUS. PEG TUBE IN PLACE, TOLERATING MEDICATIONS WELL. HAD ELEVATED TEMP BUT AFTER RECEIVING TYLEROL (SEE MAR), TEMP 99.3 F, TEMPORAL. CALL LIGHT IN REACH. WILL CONTINUE TO MONITOR. CATH DRAINING CLEAR KODAK.
[2019-09-22 04:57] LABS: Anion Gap 8 mmol/L (6-16); Blood Urea Nitrogen 18 mg/dL (8-24); Bun/Creatinine Ratio 70.6 (12.0-20.0); CO2, Blood 26 mmol/L (21-32); Chloride, Blood 94 mmol/L (98-108); Creatinine, Blood 0.26 mg/dL (0.60-1.20); Glomerular Filtration Rate >60 (60-); Glucose, Blood 151 mg/dL (70-99); Magnesium, Blood 1.7 mg/dL (1.6-2.4); Phosphorus, Blood 2.6 mg/dL (2.5-4.9); Potassium, Blood 3.7 mmol/L (3.5-5.5); Sodium, Blood 128 mmol/L (136-145)
--- NOTE | 2019-09-22 10:01 | NUR ---
spoke with patient about his feedings. caregiver spoke with the patient as well. he reported that he was scared to eat and that he was afraid this was going to happen again. spoke with the patient and the caregiver about his options currently and let the doctor know what the patient is going through. the patient has the right to refuse and is competent in his decision making. caregiver informed me she would be calling the patient's hogshead head matcher and the one who helps with decisions for the patient to see if she would be willing to talk withthe patient and see if there is any change in his condition.
--- NOTE | 2019-09-22 11:09 | NUR ---
PATIENT AND I SPOKE IN DEPTH ABOUT HIS CONCERNS. ALEAH SPOKE WITH THE PATIENT WELL. PATIENT NOTES HE FELT LIKE HE WAS "OVERFED" AND I ASKED ABOUT HIS FEARS. HE FEARED BEING "OVER FED" HERE WELL DURING HIS FEEDINGS. MYSELF AND ALEAH (DIETITIAN) AGREED AND EMPHASIZED TO THE PATIENT THAT WE WOULD NOT LET IT GET THAT WAY WHILE HE WAS HERE. PATIENT WAS APPRECIATIVE. SPOKE WITH THE PATIENT ABOUT HIS FEEDING AND HE AGREED TO HALF A FEEDING (120 ML). CHECKED IN WITH THE PATIENT AT THE 15 MINUTE HATTIE. AT THIS TIME THE PATIENT AGREED TO CONTINUE ON THE FEEDING AND STATED HE FELT OKAY. WILL CONTINUE WITH THE HALF FEEDING. PATIENT HAS ALSO BEEN FLUSHED WITH 30ML OF WATER PRIOR TO HIS FEEDING. THE PATIENT STATES HE IS COMFORTABLE AT THIS TIME. AFTER HIS FEEDING HE WILL HAVE ANOTHER PEG TUBE FLUSH AND WILL CONTINUE TO ADJUST THROUGHOUT THE DAY. CURRENTLY THE PATIENT IS SITTING AT A 45 DEGREE ANGLE AND NOT UNCOMFORTABLE AT THIS TIME. HE KNOWS HE HAS TO STAY UP PAST HIS FEEDING TO MAKE SURE HE DOES NOT HAVE A REFLUX OF HIS FOOD INTO HIS LUNGS.
--- NOTE | 2019-09-22 12:07 | NUR ---
PATIENTS CAREGIVER BACK IN THE ROOM. EXPLAINED THE CURRENT SITUATION. SHE SAT AND TALKED WITH THE PATIENT FOR A LITTLE WHILE ABOUT HIS FEEDINGS AND HIS COMFORT LEVEL. HE DID ADMIT HE FELT LIKE HE WAS OVERFED AT HOME "TOO MUCH TOO FAST" PER CAREGIVER AN DPATIENT AGREED. AT THIS TIME PATIENT IS COMFORTABLE. 120ML FEED IS DONE. PATIENT WAS FLUSHED WITH 30ML OF FLUID AND HE FEELS BETTER AT THIS TIME.
--- NOTE | 2019-09-22 16:48 | NUR ---
SHIFT SUMMARY PATIENT HAS AGREED TO TWO 120ML FEEDINGS TODAY. HE NOTES THAT HE IS COMFORTABLE AT THIS TIME. HE HAS HAD A SINGLE DOSE OF PAIN MEDICATIONS AND THIS DID SEEM TO HELP. HE IS PLEASANT, AND STILL HAS NOT MADE VERBAL CONTACT AT THIS TIME. HE DID NOTE THAT HIS BOTTOM WAS HURTING. SPOKE WITH THE DOCTOR ABOUT THIS. HE DID GET HIS DOSE OF GRACY THIS MORNING PER TUBE.
--- NOTE | 2019-09-22 21:43 | NUR ---
TUBE FEEDINGS CONTINUE - SEE REGAMINE. HOB ELEVATED 45 -50 DEGREES TO PREVENT ASPIRATION AND TUBE CHECKED FOR PLACEMENT BEFORE USE. NODDED HE WAS DOING OK. WILL CONTINUE TO MONITOR.
--- NOTE | 2019-09-23 04:58 | NUR ---
HAS BEEN RECEIVING TUBE FEEDING ABOUT EVERY 4 HRS (120 ML), AND INTERMITTENT FLUSHES OF WATER. (SEE INTAKE DOCUMENTATION FOR DETAILS.) HOB ELEVATED FOR ASPIRATION PRECAUTIONS. TOLERATING SAID FEEDINGS WELL. CALL LIGHT IN REACH. FREQUENT BEDCHECKS AND ASSESSMENTS DONE. RAILS UP X 3.
[2019-09-23 05:56] LABS: Anion Gap 10 mmol/L (6-16); Blood Urea Nitrogen 15 mg/dL (8-24); Bun/Creatinine Ratio 55.1 (12.0-20.0); CO2, Blood 25 mmol/L (21-32); Calcium, Blood 8.3 mg/dL (8.5-10.1); Chloride, Blood 93 mmol/L (98-108); Creatinine, Blood 0.27 mg/dL (0.60-1.20); Glomerular Filtration Rate >60 (60-); Glucose, Blood 198 mg/dL (70-99); Potassium, Blood 3.6 mmol/L (3.5-5.5); Sodium, Blood 128 mmol/L (136-145)
--- NOTE | 2019-09-23 18:11 | NUR ---
SHIFT SUMMARY. ALERT, PT ONLY ABLE TO NOD YES OR NO ALTHOUGH ANSWERS ARE APPROPRIATE. NO GROSS MOVEMENT OF EXTREMETIES. PT REPORTS PAIN, MEDICATED TWICE THIS SHIFT WITH PRN PERCOCET. PT MADE NPO TODAY BY DR. NASSAR FOLLOWING CXR. PT TOLERATING TUBE FEED GOAL WITH NO RESIDUAL. WOUND CARE WITH WET TO DRY AND BOARDED FORM DRESSING TO SACRAL STAGE IV DECUBITIS COMPLETED THIS AM AFTER INCONTINENT BM. SUZETTE BAILONADAPTIVE PHYSICAL EDUCATION TEACHER LOOKING INTO PT'S WOUND VAC STATUS. RESIDENTIAL CARE OFFICER HER SHORTLY THIS AM. IV ABX STARTED THIS EVENING.
--- NOTE | 2019-09-23 21:47 | NUR ---
4TH (OF 4) TUBE FEEDING ADMINISTERED PER PEG TUBE EARLIER. TOLERATED WELL. HOB ELEVATED FOR ASPIRATION PRECAUTIONS. DENIED PAIN MED NEEDS. DRESSING OF PEG TUBE CDI. WILL REPOSITOIN LATER AND CHANGE DRESSING OF COCCYX, HE IS REFUSING AT THIS TIME. WILL MONITOR.
--- NOTE | 2019-09-24 03:35 | NUR ---
REPOSITIONED INTERMITTENTLY THIS SHIFT, ATTEMPTED TO ABOUT EVERY 2 HRS, BUT PT DID NOT ALLOW THIS, BUT ALLOWED IT ABOUT EVERY 3 HRS. DRESSING OF COCCYX CHANGED, NOTED SEROSANGUINOUS DRAINAGE - SM AMT FROM WOUND. SUPRA PUBIC CATH DRAINING CLEAR KODAK. IV ANTIBIOTICS ADMINISTERED - SEE MAR FOR DETAILS. WILL CONTINUE TO ASSESS/MONITOR. PEG TUBE BOLUS' AND WATER FLUSHES DONE, TOLERATED WELL. CALL LIGHT IN REACH.
[2019-09-24 09:23] LABS: BASOPHILS ABSOLUTE AUTO 0.06 K/mm3 (0.00-0.23); BASOPHILS PERCENT AUTO 1 % (0-2); EOSINOPHILS ABSOLUTE AUTO 0.13 K/mm3 (0.00-0.68); EOSINOPHILS PERCENT AUTO 2 % (0-6); Hematocrit 30.4 % (37.0-53.0); Hemoglobin 9.9 g/dL (13.5-17.5); IMMATURE GRAN ABSOLUTE AUTO 0.07 K/mm3 (0.00-0.10); IMMATURE GRAN PERCENT AUTO 1 % (0-1); LYMPHOCYTES ABSOLUTE AUTO 1.65 K/mm3 (0.84-5.20); LYMPHOCYTES PERCENT AUTO 21 % (21-46); MONOCYTES ABSOLUTE AUTO 0.67 K/mm3 (0.16-1.47); MONOCYTES PERCENT AUTO 9 % (4-13); Mean Corpuscular HGB 28.2 pg (26.0-34.0); Mean Corpuscular HGB Conc 32.6 g/dL (31.5-36.5); Mean Corpuscular Volume 87 fL (80-100); Mean Platelet Volume 10.6 fL (9.1-12.4); NEUTROPHILS ABSOLUTE AUTO 5.12 K/mm3 (1.96-9.15); NEUTROPHILS PERCENT AUTO 67 % (41-73); Platelet Count 245 K/mm3 (150-400); RDW Standard Deviation 47.3 fL (35.1-46.3); Red Blood Cell Count 3.51 M/mm3 (4.30-5.90)
[2019-09-24 09:36] LABS: Anion Gap 6 mmol/L (6-16); Blood Urea Nitrogen 20 mg/dL (8-24); CO2, Blood 30 mmol/L (21-32); Calcium, Blood 8.3 mg/dL (8.5-10.1); Chloride, Blood 94 mmol/L (98-108); Creatinine, Blood 0.29 mg/dL (0.60-1.20); Glomerular Filtration Rate >60 (60-); Glucose, Blood 159 mg/dL (70-99); Potassium, Blood 3.6 mmol/L (3.5-5.5); Sodium, Blood 130 mmol/L (136-145)
[2019-09-24] MEDS ORDERED: CLIN300 PT (14:21)
[2019-09-24] MEDS ORDERED: Florastor250 MG PT (14:22)
[2019-09-24] MEDS ORDERED: Fludrocortison0.1 MG PT (14:22)
[2019-09-24] MEDS ORDERED: MIRT15ST PT (14:22)
--- NOTE | 2019-09-24 14:56 | NUR ---
1437 PT DISCHARGED HOME TO [facility] VIA GURNEY TRANSPORT. IV REMOVED. CAREGIVERS AT BEDSIDE. COPY OF ORDERS GIVEN TO CAREGIVER, REVIEWED WITH CAREGIVER. PT TOLERATED TF WITHOUT ISSUE.
== END 2019-09-24 14:37 | disposition home or self-care (01) | DRG 698 ==
LOC: ER 02:35 → MEDS 02:36 → ENPENDDIS 09-24 12:00 → MEDS 09-24 14:37
PROVIDERS: Emergency Medicine; Family Medicine; Student in an Organized Health Care Education/Training Program; ADMIT Internal Medicine
DX: T83.510A Infection and inflammatory reaction due to cystostomy catheter, initial encounter (principal); L89.94 Pressure ulcer of unspecified site, stage 4; A41.9 Sepsis, unspecified organism; J69.0 Pneumonitis due to inhalation of food and vomit; E46 Unspecified protein-calorie malnutrition; G80.9 Cerebral palsy, unspecified; I10 Essential (primary) hypertension; E78.5 Hyperlipidemia, unspecified; E03.9 Hypothyroidism, unspecified; I73.9 Peripheral vascular disease, unspecified; Z74.01 Bed confinement status; Z79.82 Long term (current) use of aspirin; Z22.39 Carrier of other specified bacterial diseases
CPT/HCPCS: 36415; 51705; 71045; 80048; 80053; 80400; 81001; 82533; 82947; 83605; 83735; 84100; 84145; 85025; 87040; 87077; 87086; 87186; 87804; 93005; 93010; 96361; 96361-59; 96365-59; 96366; 96367; 96372; 96375; 99285-25; A9270; C2627; G0378; J0834; J1650; J1956; J7030

== ENCOUNTER 2019-09-26 13:32 | Day surgery (SDC) | payer OTHER ==
[~2019-09-26 13:32] MED LIST changes: +CLIN300 PT; +Florastor250 MG PT; +Fludrocortison0.1 MG PT; +MIRT15ST PT
== END 2019-09-26 23:07 | disposition home or self-care (01) ==
LOC: WOUND 13:32
DX: I96 Gangrene, not elsewhere classified (principal); L89.154 Pressure ulcer of sacral region, stage 4; E11.52 Type 2 diabetes mellitus with diabetic peripheral angiopathy with gangrene; E11.40 Type 2 diabetes mellitus with diabetic neuropathy, unspecified; G80.9 Cerebral palsy, unspecified; I10 Essential (primary) hypertension; I25.10 Atherosclerotic heart disease of native coronary artery without angina pectoris; E11.69 Type 2 diabetes mellitus with other specified complication; M86.8X9 Other osteomyelitis, unspecified sites; E07.9 Disorder of thyroid, unspecified; Z99.3 Dependence on wheelchair; Z88.0 Allergy status to penicillin; Z88.1 Allergy status to other antibiotic agents; Z88.8 Allergy status to other drugs, medicaments and biological substances; Z79.82 Long term (current) use of aspirin; Z79.51 Long term (current) use of inhaled steroids; Z79.899 Other long term (current) drug therapy
CPT/HCPCS: G0463

== ENCOUNTER 2019-10-01 00:13 | Day surgery (SDC) | payer OTHER | END 2019-10-01 22:57 | disposition home or self-care (01) | LOC: WOUND 00:13 | DX: L89.159 Pressure ulcer of sacral region, unspecified stage (principal); M86.8X9 Other osteomyelitis, unspecified sites; E11.40 Type 2 diabetes mellitus with diabetic neuropathy, unspecified; E11.51 Type 2 diabetes mellitus with diabetic peripheral angiopathy without gangrene; I10 Essential (primary) hypertension; G80.9 Cerebral palsy, unspecified; Z99.3 Dependence on wheelchair; Z79.899 Other long term (current) drug therapy; Z79.82 Long term (current) use of aspirin | CPT/HCPCS: G0463 ==